=== PATIENT | male | born 1975 | race Caucasian/White ===

== ENCOUNTER 2020-08-04 06:34 | Outpatient (CLI) | payer BC, SELFPAY ==
[2020-08-04 07:15] LABS: Alanine Aminotransferase 30 U/L (4-50); Alkaline Phosphatase 63 U/L (38-126); Anion Gap 6 mmol/L (8-16); Aspartate Amino Transferase 25 U/L (17-59); Bilirubin,Total 0.4 mg/dL (0.2-1.3); Blood Urea Nitrogen 9 mg/dL (9-20); Calcium 9.1 mg/dL (8.4-10.2); Carbon Dioxide 32 mmol/L (22-30); Chloride 102 mmol/L (98-107); Cholesterol 159 mg/dL (0-200); Estimated Glomerular Filt Rate > 60; Glucose 118 mg/dL (75-110); HDL Direct 29 mg/dL; Potassium 4.1 mmol/L (3.4-5.0); Sodium 140 mmol/L (137-145); Triglycerides 167 mg/dL (<150)
[2020-08-04 07:26] LABS: LDL Cholesterol Direct 104 mg/dL
== END 2020-08-04 06:35 | disposition home or self-care (01) ==
PROVIDERS: PCP Internal Medicine; Visit Provider Internal Medicine Cardiovascular Disease
DX: I48.19 Other persistent atrial fibrillation (principal); E78.2 Mixed hyperlipidemia; R00.2 Palpitations
CPT/HCPCS: 36415; 80053; 80061; 83735; 84443

== ENCOUNTER 2020-09-11 10:57 | Outpatient (CLI) | payer BC, SELFPAY ==
[2020-09-14 07:55] LABS: FSH <0.7 mIU/mL (1.6-8.0); LH <0.2 mIU/mL (1.5-9.3)
[2020-09-15 13:57] LABS: Testosterone Free 177.4 pg/mL (35.0-155.0); Testosterone Total 837 ng/dL (250-1100)
== END 2020-09-11 10:58 | disposition home or self-care (01) ==
PROVIDERS: PCP Internal Medicine; Visit Provider Internal Medicine
DX: R79.89 Other specified abnormal findings of blood chemistry (principal)
CPT/HCPCS: 36415; 83001; 83002; 84402; 84403

== ENCOUNTER 2021-01-01 15:08 | Outpatient (CLI) | payer BC, SELFPAY ==
[2021-01-01 15:45] LABS: Basophils Percent Auto 0.2 % (0.2-1.2); Eosinophils Absolute Auto 0.1 K/mm3 (0-0.3); Eosinophils Percent Auto 1.3 % (0-4.4); Hematocrit 49.1 % (42.0-52.0); Hemoglobin 16.8 g/dL (14.0-18.0); Immature Granulocyte Absolute 0.04 K/mm3 (0.00-0.031); Immature Granulocyte Percent A 0.5 % (0-0.5); Lymphocytes Absolute Auto 1.54 K/mm3 (0.9-3.2); Mean Corpuscular HGB Conc 34.2 g/dl (32-36); Mean Corpuscular Hemoglobin 30.4 pg (26-34); Mean Corpuscular Volume 88.8 fl (80-100); Mean Platelet Volume 8.8 fl (7.4-10.4); Monocytes Absolute Auto 0.7 K/mm3 (0.1-0.6); Monocytes Percent Auto 7.7 % (2.6-8.5); Neutrophils Absolute Auto 6.2 K/mm3 (1.3-6.7); Neutrophils Percent Auto 72.3 % (45.5-73.1); Platelet Count Result 239 k/mm3 (150-375); Red Blood Count 5.53 M/mm3 (4.6-6.20); Red Cell Distribution Width 12.1 % (11.5-14.5); White Blood Count 8.6 K/mm3 (4.5-10.0)
[2021-01-01 16:01] LABS: Alanine Aminotransferase 30 U/L (4-50); Alkaline Phosphatase 67 U/L (38-126); Anion Gap 6 mmol/L (8-16); Aspartate Amino Transferase 28 U/L (17-59); Bilirubin,Total 0.5 mg/dL (0.2-1.3); Blood Urea Nitrogen 11 mg/dL (9-20); Carbon Dioxide 28 mmol/L (22-30); Chloride 103 mmol/L (98-107); Cholesterol 150 mg/dL (0-200); Estimated Glomerular Filt Rate > 60; Glucose 107 mg/dL (75-110); HDL Direct 30 mg/dL; Potassium 3.8 mmol/L (3.4-5.0); Sodium 137 mmol/L (137-145); Triglycerides 197 mg/dL (<150)
[2021-01-01 16:12] LABS: LDL Cholesterol Direct 92 mg/dL
[2021-01-01 16:30] LABS: Prostate Specific Antigen 1.5 ng/mL (< OR = 4.0)
[2021-01-05 15:25] LABS: Testosterone Free 333.4 pg/mL (35.0-155.0); Testosterone Total 1323 ng/dL (250-1100)
== END 2021-01-01 15:09 | disposition home or self-care (01) ==
PROVIDERS: PCP Internal Medicine; Visit Provider Internal Medicine
DX: R79.89 Other specified abnormal findings of blood chemistry (principal); I48.0 Paroxysmal atrial fibrillation
CPT/HCPCS: 36415; 80053; 80061; 84153; 84402; 84403; 85025

== ENCOUNTER 2021-07-03 09:02 | Outpatient (CLI) | payer BC, SELFPAY ==
[2021-07-03 09:17] LABS: Basophils Percent Auto 0.4 % (0.2-1.2); Eosinophils Absolute Auto 0.2 K/mm3 (0-0.3); Eosinophils Percent Auto 2.8 % (0-4.4); Hemoglobin 15.7 g/dL (14.0-18.0); Immature Granulocyte Absolute 0.02 K/mm3 (0.00-0.031); Immature Granulocyte Percent A 0.3 % (0-0.5); Lymphocytes Absolute Auto 1.07 K/mm3 (0.9-3.2); Lymphocytes Percent Auto 15.6 % (18.3-44.2); Mean Corpuscular HGB Conc 34.1 g/dl (32-36); Mean Corpuscular Hemoglobin 30.8 pg (26-34); Mean Corpuscular Volume 90.4 fl (80-100); Mean Platelet Volume 8.7 fl (7.4-10.4); Monocytes Absolute Auto 0.7 K/mm3 (0.1-0.6); Monocytes Percent Auto 10.6 % (2.6-8.5); Neutrophils Absolute Auto 4.8 K/mm3 (1.3-6.7); Neutrophils Percent Auto 70.3 % (45.5-73.1); Platelet Count Result 205 k/mm3 (150-375); Red Blood Count 5.09 M/mm3 (4.6-6.20); Red Cell Distribution Width 12.3 % (11.5-14.5); White Blood Count 6.9 K/mm3 (4.5-10.0)
[2021-07-08 12:52] LABS: Testosterone Free 207.7 pg/mL (35.0-155.0); Testosterone Total 966 ng/dL (250-1100)
== END 2021-07-03 09:03 | disposition home or self-care (01) ==
PROVIDERS: PCP Internal Medicine; Visit Provider Internal Medicine
DX: I48.0 Paroxysmal atrial fibrillation (principal); R79.89 Other specified abnormal findings of blood chemistry
CPT/HCPCS: 36415; 84402; 84403; 85025

== ENCOUNTER 2022-02-04 06:57 | Outpatient (CLI) | payer BC, SELFPAY ==
[2022-02-04 07:33] LABS: Alanine Aminotransferase 30 U/L (4-50); Albumin Level 4.2 g/dL (3.5-5.1); Alkaline Phosphatase 78 U/L (38-126); Anion Gap 7 mmol/L (8-16); Aspartate Amino Transferase 32 U/L (17-59); Bilirubin,Total 0.6 mg/dL (0.2-1.3); Blood Urea Nitrogen 15 mg/dL (9-20); Calcium 8.6 mg/dL (8.4-10.2); Carbon Dioxide 27 mmol/L (22-30); Chloride 103 mmol/L (98-107); Estimated Glomerular Filt Rate > 60; Glucose 158 mg/dL (65-110); Potassium 4.1 mmol/L (3.4-5.0); Sodium 137 mmol/L (137-145)
[2022-02-04 08:03] LABS: Prostate Specific Antigen 1.3 ng/mL (< OR = 4.0)
[2022-02-04 08:37] LABS: Basophils Percent Auto 0.4 % (0.2-1.2); Eosinophils Absolute Auto 0.1 K/mm3 (0-0.3); Hematocrit 45.3 % (42.0-52.0); Hemoglobin 14.8 g/dL (14.0-18.0); Immature Granulocyte Absolute 0.01 K/mm3 (0.00-0.031); Immature Granulocyte Percent A 0.2 % (0-0.5); Lymphocytes Absolute Auto 0.97 K/mm3 (0.9-3.2); Lymphocytes Percent Auto 19.7 % (18.3-44.2); Mean Corpuscular HGB Conc 32.7 g/dl (32-36); Mean Corpuscular Hemoglobin 30.5 pg (26-34); Mean Corpuscular Volume 93.4 fl (80-100); Mean Platelet Volume 9.4 fl (7.4-10.4); Monocytes Absolute Auto 0.3 K/mm3 (0.1-0.6); Monocytes Percent Auto 5.7 % (2.6-8.5); Neutrophils Absolute Auto 3.6 K/mm3 (1.3-6.7); Platelet Count Result 219 k/mm3 (150-375); Red Blood Count 4.85 M/mm3 (4.6-6.20); Red Cell Distribution Width 12.8 % (11.5-14.5); White Blood Count 4.9 K/mm3 (4.5-10.0)
[2022-02-08 13:11] LABS: Testosterone Free 182.2 pg/mL (35.0-155.0); Testosterone Total 911 ng/dL (250-1100)
== END 2022-02-04 06:58 | disposition home or self-care (01) ==
LOC: ANHLAB 06:59
PROVIDERS: PCP Internal Medicine; Visit Provider Internal Medicine
DX: R79.89 Other specified abnormal findings of blood chemistry (principal); Z51.81 Encounter for therapeutic drug level monitoring; Z79.890 Hormone replacement therapy
CPT/HCPCS: 36415; 80053; 84153; 84402; 84403; 85025

== ENCOUNTER 2022-08-08 06:58 | Outpatient (CLI) | payer BC, SELFPAY ==
[2022-08-08 07:16] LABS: Hematocrit 42.2 % (42.0-52.0); Hemoglobin 14.5 g/dL (14.0-18.0); Mean Corpuscular HGB Conc 34.4 g/dl (32-36); Mean Corpuscular Hemoglobin 30.5 pg (26-34); Mean Corpuscular Volume 88.7 fl (80-100); Mean Platelet Volume 8.7 fl (7.4-10.4); Platelet Count Result 212 k/mm3 (150-375); Red Blood Count 4.76 M/mm3 (4.6-6.20); Red Cell Distribution Width 12.5 % (11.5-14.5)
[2022-08-08 07:38] LABS: Alanine Aminotransferase 23 U/L (6-50); Albumin Level 4.1 g/dL (3.5-5.1); Alkaline Phosphatase 77 U/L (38-126); Anion Gap 7 mmol/L (8-16); Aspartate Amino Transferase 23 U/L (17-59); Bilirubin,Total 0.3 mg/dL (0.2-1.3); Blood Urea Nitrogen 14 mg/dL (9-20); Calcium 8.5 mg/dL (8.4-10.2); Carbon Dioxide 28 mmol/L (22-30); Chloride 102 mmol/L (98-107); Estimated Glomerular Filt Rate > 60; Glucose 120 mg/dL (65-110); Potassium 4.1 mmol/L (3.4-5.0); Sodium 137 mmol/L (137-145)
[2022-08-08 08:00] LABS: Prostate Specific Antigen 1.7 ng/mL (< OR = 4.0)
[2022-08-13 13:21] LABS: Testosterone Total 936 ng/dL (250-1100)
== END 2022-08-08 06:59 | disposition home or self-care (01) ==
LOC: ANHLAB 06:59
PROVIDERS: PCP Internal Medicine; Visit Provider Internal Medicine
DX: R79.89 Other specified abnormal findings of blood chemistry (principal); Z79.890 Hormone replacement therapy; Z12.5 Encounter for screening for malignant neoplasm of prostate; Z51.81 Encounter for therapeutic drug level monitoring
CPT/HCPCS: 36415; 80053; 84153; 84402; 84403; 85027; G0103

== ENCOUNTER 2022-09-19 15:11 | Outpatient (CLI) | payer BC, SELFPAY ==
--- NOTE | ~2022-09-19 | XR_ITS ---
EXAM: XR ankle LT min 3V, XR foot LT min 3V DATE: 09/19/2022 15:33 HISTORY: M25.572 SWELLING MEDIALLY X6MO, NO INJ, CUBOID FX 20YRS AGO . COMPARISON: Left ankle x-ray 08/19/2016. FINDINGS: Normal mineralization. No acute fracture or dislocation. No lytic or blastic lesion. Mild degenerative change at the tibiotalar joint, first MTP joint, and multiple midfoot joints. Plantar en thesopathy. Mild flattening and subchondral sclerosis of the second and third metatarsal heads, possi elda representing mild osteochondrosis. No erosion or periosteal change. Small ankle joint effusion. IMPRESSION: No acute osseous finding in the left ankle or foot. Chronic and degenerative changes deta iled above. Reviewed, dictated and finalized at location K. CAST OPERATOR IMPRESSION: No acute osseous finding in the left ankle or foot. Chronic and deg enerative changes detailed above.
== END 2022-09-19 15:12 | disposition home or self-care (01) ==
PROVIDERS: PCP Internal Medicine; Visit Provider Internal Medicine
DX: M25.572 Pain in left ankle and joints of left foot (principal); M79.672 Pain in left foot
CPT/HCPCS: 73610; 73630

== ENCOUNTER 2022-11-22 16:18 | Outpatient (CLI) | payer BC, SELFPAY ==
[2022-11-22 16:52] LABS: Alanine Aminotransferase 28 U/L (6-50); Aspartate Amino Transferase 35 U/L (17-59)
== END 2022-11-22 16:19 | disposition home or self-care (01) ==
PROVIDERS: PCP Internal Medicine; Visit Provider Podiatrist Foot & Ankle Surgery
DX: B35.1 Tinea unguium (principal)
CPT/HCPCS: 36415; 84450; 84460

== ENCOUNTER 2023-05-29 07:29 | Outpatient (CLI) | payer BC, SELFPAY ==
[2023-05-29 08:32] LABS: Hematocrit 44.6 % (42.0-52.0); Hemoglobin 14.9 g/dL (14.0-18.0); Mean Corpuscular HGB Conc 33.4 g/dl (32-36); Mean Corpuscular Hemoglobin 30.3 pg (26-34); Mean Corpuscular Volume 90.8 fl (80-100); Platelet Count Result 200 k/mm3 (150-375); Red Blood Count 4.91 M/mm3 (4.6-6.20); Red Cell Distribution Width 12.5 % (11.5-14.5)
[2023-05-29 08:46] LABS: Alanine Aminotransferase 29 U/L (6-50); Albumin Level 4.1 g/dL (3.5-5.1); Alkaline Phosphatase 82 U/L (38-126); Anion Gap 6 mmol/L (8-16); Aspartate Amino Transferase 25 U/L (17-59); Bilirubin,Total 0.5 mg/dL (0.2-1.3); Blood Urea Nitrogen 16 mg/dL (9-20); Calcium 8.6 mg/dL (8.4-10.2); Carbon Dioxide 27 mmol/L (22-30); Chloride 105 mmol/L (98-107); Estimated Glomerular Filt Rate > 60; Glucose 95 mg/dL (65-110); Potassium 3.9 mmol/L (3.4-5.0); Sodium 138 mmol/L (137-145)
[2023-05-29 09:13] LABS: Prostate Specific Antigen 1.5 ng/mL (< OR = 4.0)
[2023-06-01 17:09] LABS: Testosterone Free 73.5 pg/mL (35.0-155.0); Testosterone Total 462 ng/dL (250-1100)
== END 2023-05-29 07:30 | disposition home or self-care (01) ==
LOC: ANHLAB 07:31
PROVIDERS: PCP Internal Medicine; Visit Provider Internal Medicine
DX: Z51.81 Encounter for therapeutic drug level monitoring (principal); R79.89 Other specified abnormal findings of blood chemistry; Z79.890 Hormone replacement therapy
CPT/HCPCS: 36415; 80053; 84153; 84402; 84403; 85027

== ENCOUNTER 2023-11-21 01:25 | Day surgery (SDC) | payer BC, SELFPAY ==
[2023-11-07 16:06] VITALS: BMI 28.3
--- NOTE | 2023-11-17 10:26 | SUR.PREOP ---
Patient called regarding upcoming procedure. Reviewed preop instructions, appointment times, and procedure prep.
[2023-11-21 07:40] VITALS: BP 116/57; PULSE 16; RESP 16; TEMP 36.1; O2SAT 98; BMI 28.0
[2023-11-21] MEDS: LACTATED RINGERS 1,000 ML 150 ML IV CONT (08:07)
--- NOTE | 2023-11-21 08:27 | WPDANESEPPF ---
Anes - Initial Pre Proc Eval Procedure: Operation Date: 11/21/23 09:00 Proposed Procedures p Screening Colonoscopy - Feliciano Rogers MD Date/Time: 11/21/23 08:27 Surgeon: Feliciano Rogers MD Pre Op Diagnosis: neoplasm screening Patient Data Age: 48 Gender: M Height: 1.88 m Weight: 98.9 kg Last Vital Signs Temp 97.0 F L 11/21/23 07:40 Pulse 16 L 11/21/23 07:40 Resp 16 11/21/23 07:40 BP 116/57 L 11/21/23 07:40 Pulse Ox 98 11/21/23 07:40 O2 Del Method Room Air 11/21/23 07:40 Allergies Allergy/AdvReac Type Severity Reaction Status Date / Time No Known Allergies Allergy Unknown Verified 11/21/23 07:49 Home Medications Medication Instructions Recorded Confirmed Type sildenafil (pulm.hypertension) 20 60 mg PO DAILY PRN sexual activity 09/30/22 11/21/23 Rx mg tablet #30 tabs syringe with needle 3 mL 21 gauge #100 ea 06/22/23 11/21/23 Rx x 1 1/2 (BD Luer-Ruben Syringe) metoprolol succinate 25 mg 25 mg PO DAILY 11/07/23 11/21/23 History tablet,extended release 24 hr testosterone cypionate 200 mg/mL 150 mg IM WEEKLY 11/07/23 11/21/23 History intramuscular oil Patient hx anesthesia problems: none Family hx anesthesia problems: none Results Review: All pre-operative results and documents have been reviewed as part of the pre-operative evaluation. [facility] Past Medical History Medical History Allergies Encounter for monitoring testosterone replacement therapy Epigastric mass Erectile dysfunction Heartburn Low testosterone Migraine Paroxysmal atrial fibrillation Surgical History Surgical History H/O heart surgery 11/04/2020 Family History Family History Mother Patient's mother is in good health Father Patient's father is in good health Grandparent Malignant neoplasm of prostate Social History Social History (Updated 06/13/23 @ 11:40 by Melissa Rajan [facility]) Smoking status: Never smoker Alcohol intake: current Substance use: never Substance use type: does not use Lack of Transportation: No Lack of Food: Never True Current Housing: I Have Housing Concerned About Future Housing: No Difficulty Paying Gas/Electric Bills: No Difficulty Paying for Meds: No Currently Unemployed: No Education: Associate Degree Difficulty w/ Childcare or Family Care: No Living arrangements: with family Spiritual care concerns: No Anes - Eval Final PreProcedure Day of Procedure 11/21/23 08:27 Patient weight: normal Heart: regular rate and rhythm Lungs: clear to auscultation Airway: Mallampati scale class II Neurological: alert and oriented Last oral intake: >/= 8 hours ASA classification: III Emergent: no Anesthetic plan: proceed Anesthesia type and monitoring: general GIVS and standard monitoring Results Review: All pre-operative results and documents have been reviewed as part of the pre-operative evaluation. Informed Consent: The patient's anesthetic plan and its attendant risks and benefits were discussed with the patient/family/POA. Questions were solicited and answers provided to the satisfaction of the patient/family/POA.
--- NOTE | 2023-11-21 08:39 | PM.HPGS ---
History of Present Illness History of Present Illness Consent: Risks, benefits, and alternatives have been discussed and questions answered. Patient agrees to proceed with procedure. Chief complaint: neoplasm screening Narrative: Daniel Colon Jr. is a 48 year old male here for first screening colonoscopy Review of Systems Constitutional: Constitutional: Denies headache(s) and Denies weakness Eyes: Eyes: Denies blurry vision ENT: Reports Normal hearing present, Denies headache(s) and Denies neck pain Cardiovascular: Cardiovascular: Denies chest pain and Denies dyspnea Respiratory: Respiratory: Denies dyspnea Gastrointestinal: Gastrointestinal: Reports no additional gastrointestinal complaints Genitourinary: Genitourinary: Denies dysuria Musculoskeletal: Musculoskeletal: Denies neck pain Integumentary/Breasts: Skin/Breast: Denies dry skin Neurologic: Reports Normal hearing present, Denies headache(s) and Denies weakness Psychiatric: Psychiatric: Denies anxiety Endocrine: Endocrine: Denies change in body appearance Hematologic/Lymphatic: Hematologic/Lymphatic: Denies easy bleeding Allergic/Immunologic: Allergic/Immunologic: Denies urticaria PMFSH Past Medical History Medical History Allergies Encounter for monitoring testosterone replacement therapy Epigastric mass Erectile dysfunction Heartburn Low testosterone Migraine Paroxysmal atrial fibrillation Surgical History Surgical History H/O heart surgery 11/04/2020 Family History Family History Mother Patient's mother is in good health Father Patient's father is in good health Grandparent Malignant neoplasm of prostate Social History Social History (Updated 06/13/23 @ 11:40 by Melissa Rajan CMA) Smoking status: Never smoker Alcohol intake: current Substance use: never Substance use type: does not use Lack of Transportation: No Lack of Food: Never True Current Housing: I Have Housing Concerned About Future Housing: No Difficulty Paying Gas/Electric Bills: No Difficulty Paying for Meds: No Currently Unemployed: No Education: Associate Degree Difficulty w/ Childcare or Family Care: No Living arrangements: with family Spiritual care concerns: No Meds Home Medications and Allergies Home Medications Medication Instructions Recorded Confirmed Type sildenafil (pulm.hypertension) 20 60 mg PO DAILY PRN sexual activity 09/30/22 11/21/23 Rx mg tablet #30 tabs syringe with needle 3 mL 21 gauge #100 ea 06/22/23 11/21/23 Rx x 1 1/2 (BD Luer-Ruben Syringe) metoprolol succinate 25 mg 25 mg PO DAILY 11/07/23 11/21/23 History tablet,extended release 24 hr testosterone cypionate 200 mg/mL 150 mg IM WEEKLY 11/07/23 11/21/23 History intramuscular oil Allergies Allergy/AdvReac Type Severity Reaction Status Date / Time No Known Allergies Allergy Unknown Verified 11/21/23 07:49 Vital Signs Vital Signs - 24 hr 11/21/23 07:40 Temperature 97.0 F L Pulse Rate 16 L Respiratory Rate 16 Blood Pressure 116/57 L Pulse Oximetry 98 Oxygen Delivery Room Air Exam Const: General: comfortable and no acute distress HENMT: Face/Nose/Sinus: Normal nares present Eyes: General: appearance normal, both eyes and all related structures Neck: Neck: no JVD Resp: Auscultation: clear to auscultation bilaterally Cardio: Rate: regular rate Rhythm: regular rhythm GI: Inspection: non-distended GI Palp: Yes Soft to palpation Skin: General skin exam: normal color Neuro: General: gait normal Speech: normal speech Extrem: General: normal to inspection Psych: Mental Status: mental status grossly normal Assessment and Plan Assessment and plan (1) Colon cancer screening: Code(s): Z12.11 - Encounter for screening f
[2023-11-21 09:03] VITALS: BP 92/54; PULSE 78; RESP 20; O2SAT 97
[2023-11-21 09:13] VITALS: BP 109/66; PULSE 72; RESP 20; O2SAT 100
[2023-11-21 09:23] VITALS: BP 113/70; PULSE 67; RESP 20; O2SAT 99
== END 2023-11-21 09:30 | disposition home or self-care (01) ==
PROVIDERS: PCP Internal Medicine; Visit Provider Internal Medicine Gastroenterology
PROC: 0DJD8ZZ Inspection of Lower Intestinal Tract, Via Natural or Artificial Opening Endoscopic (ICD-10-PCS; CPT 45378; principal; 2023-11-21 09:00)
DX: Z12.11 Encounter for screening for malignant neoplasm of colon (principal); K57.30 Diverticulosis of large intestine without perforation or abscess without bleeding; K64.8 Other hemorrhoids; E29.1 Testicular hypofunction; Z79.890 Hormone replacement therapy; I48.0 Paroxysmal atrial fibrillation
CPT/HCPCS: 45378; J2704; J7120

== ENCOUNTER 2024-02-07 07:51 | Outpatient (CLI) | payer BC, SELFPAY ==
[2024-02-07 09:07] LABS: Alanine Aminotransferase 25 U/L (6-50); Albumin Level 4.2 g/dL (3.5-5.1); Alkaline Phosphatase 85 U/L (38-126); Anion Gap 6 mmol/L (4-12); Aspartate Amino Transferase 27 U/L (17-59); Bilirubin,Total 0.7 mg/dL (0.2-1.3); Blood Urea Nitrogen 15 mg/dL (9-20); Carbon Dioxide 28 mmol/L (22-30); Chloride 105 mmol/L (98-107); Estimated Glomerular Filt Rate > 60; Glucose 112 mg/dL (65-110); Potassium 3.8 mmol/L (3.4-5.0); Sodium 139 mmol/L (137-145)
[2024-02-07 09:27] LABS: Hematocrit 44.6 % (42.0-52.0); Hemoglobin 14.8 g/dL (14.0-18.0); Mean Corpuscular HGB Conc 33.2 g/dl (32-36); Mean Corpuscular Hemoglobin 30.1 pg (26-34); Mean Corpuscular Volume 90.7 fl (80-100); Mean Platelet Volume 9.9 fl (7.4-10.4); Platelet Count Result 233 k/mm3 (150-375); Red Blood Count 4.92 M/mm3 (4.6-6.20); White Blood Count 4.8 K/mm3 (4.5-10.0)
[2024-02-07 09:35] LABS: Prostate Specific Antigen 1.6 ng/mL (< OR = 4.0)
[2024-02-13 16:23] LABS: Testosterone Free 160.6 pg/mL (35.0-155.0); Testosterone Total 935 ng/dL (250-1100)
== END 2024-02-07 07:52 | disposition home or self-care (01) ==
LOC: ANHLAB 07:52
PROVIDERS: PCP Internal Medicine; Visit Provider Internal Medicine
DX: Z51.81 Encounter for therapeutic drug level monitoring (principal); R79.89 Other specified abnormal findings of blood chemistry; Z79.890 Hormone replacement therapy
CPT/HCPCS: 36415; 80053; 84153; 84402; 84403; 85027

== ENCOUNTER 2025-03-26 14:57 | Outpatient (CLI) | payer OTHER, SELFPAY ==
[2025-03-26 15:36] LABS: Cholesterol 148 mg/dL (0-200); HDL Direct 37 mg/dL; Triglycerides 84 mg/dL (<150)
[2025-03-26 15:45] LABS: LDL Cholesterol Direct 90 mg/dL
[2025-03-26 16:03] LABS: Iron 63 ug/dL (49-181)
[2025-03-26 16:06] LABS: Prostate Specific Antigen 1.8 ng/mL (< OR = 4.0)
[2025-03-26 16:11] LABS: Percent Iron Saturation 22 % (20-50)
--- OUTSIDE RECORDS SUMMARY | 2025-03-26 17:30 | XMS_ITS | Referral Summary ---
Author Organization [facility] Healthcare Address [address] [place] [address] Care Team Providers Care Fish Hatchery Inspector Name Role Phone Ke Burks DO Primary Care Provider [phone] Allergies No known active allergies Medications sildenafiL, pulm.hypertensio n, (REVATIO) 20 mg tabletIndication s:Erectile Dysfunction Take 1 tablet (20 mg total) by mouth as needed 0 Active testosterone cypionate (DEPO-TESTOTERON E) 200 mg/mL injectionIndicat ions:Androgen Deficiency Inject 0.75 mL (150 mg total) into the muscle as instructed once a week 0 Active multivitamin capsule Take 2 capsules by mouth daily Active ascorbic acid (ascorbic acid with adonis hips) 500 mg tablet,chewable Acti ve metoprolol XL (TOPROL-XL) 25 mg extended release tablet TAKE 1 TABLET BY MOUTH EVERY DAY 90 tablet 2 4 Active Active Problems Problem Noted Date Diagnosed Date Preventative health care 11/20/2023 Assessment & Plan (11/20/2023 8:42 AM SALON SUPERVISOR): Lipid profile with next lab draw. Osteoarthritis 11/04/2020 Assessment & Plan (11/04/2020 6:04 PM SALON SUPERVISOR): - hold nsaids periprocedurally Atrial fibrillation 10/05/2020 Overview (10/05/2020): Added automatically from request for surgery [id number] Assessment & Plan (11/20/2023 8:41 AM SALON SUPERVISOR): Ok to change metoprolol to PRN. Assessment & Plan (11/05/2020 10:42 AM SALON SUPERVISOR): Recurrent paroxysmal Afib/flutter treated with Pulmonary vein isolation/RFA yesterday. No complications noted overnight. - resume eliquis per EP team - resume toprol this morning - monitor on tele- NSR - PPI x 30 days per EP Assessment & Plan (11/04/2020 6:04 PM SALON SUPERVISOR): - recurrent paroxysmal Afib/flutter treated with Pulmonary vein isolation/RFA today - resume eliquis per EP team - will likely resume toprol in AM - will confirm with EP - monitor on tele - monitor for any complications of procedure including groin puncture site hematoma/fistulae, effusions etc.; if doing well may be able to go home tomorrow - will clarify with EP if need for PPI post procedure given proximity to esophagus Chronic infection of sinus 11/26/2012 Social History Tobacco Use Types Packs/Day Years Used Date Smoking Tobacco: Never Smokeless Tobacco: Never Tobacco Cessation:Counseling Given: Not Answered Alcohol Use Standard Drinks/Week Comments Not Currently 0 (1 standard drink = 0.6 oz pur e alcohol) Sex and Gender Information Value Date Recorded Sex Assigned at Not on file Legal Sex Male 10:02 AM SALON SUPERVISOR Gender Identity Male 12/09/2020 6:29 PM SALON SUPERVISOR Sexual Orientation Straight 12/09/2020 6: 29 PM SALON SUPERVISOR Last Filed Vital Signs Vital Sign Reading Time Taken Comments Blood Pressure 122/77 11/20/2023 8:40 AM SALON SUPERVISOR Pulse 61 11/20/2023 8:40 AM SALON SUPERVISOR Temperature 36.8 C (98.2 F) 02/07/2021 5:30 AM CDT Respiratory Rate 20 02/07/2021 7:45 AM CDT Oxygen Saturation 97% 11/20/2023 8:40 AM SALON SUPERVISOR Inhaled Oxygen Concentration - - Weight 102.8 kg (226 lb 9.6 oz) 11/20/2023 8:40 AM SALON SUPERVISOR Height 188 cm (6' 2) 11/20/2023 8:40 AM SALON SUPERVISOR Body Mass Index 29.09 11/20/2023 8:40 AM SALON SUPERVISOR Plan of Treatment Not on file Medical Devices Implanted Type Area Digital Artist Device Identifier Shelf Expiration Date Model / Serial / Lot [employer] [id number] System 6-12fr Mvp Venous Closure Vascade - [id number] Implanted:Qty: 1 on 11/04/2020 by Ronald Epperson MD at [facility] [employer] 08/17/2022 [id number]-[id number] / / [employer] [id number] System 6-12fr Mvp Venous Closure Vascade - [id number] Implanted:Qty: 1 on 11/04/2020 by Ronald Epperson MD at [facility] [employer] 08/17/2022 800-612C-[id number] [id number] / / [employer] [id number] System 6-12fr Mvp Venous Closure Vascade - [id number] Implanted:Qty: 1 on 11/04/2020 by Ronald Epperson MD at [facility] [employer] 08/17/2022 [id number] / / Insurance ANTHEM ACCESS CHOICE Advance Directives For more information, please contact: [phone] * Full Code (Latest Code Status on File) Date Activated Date Inactivated Comments 02/05/2021 3:10 PM 02/07/2021 3:58 PM Care Teams Fish Hatchery Inspector Relationship Specialty Start Date End Date Ke Burks DO PCP - General 06/01/15
--- OUTSIDE RECORDS SUMMARY | 2025-03-26 17:30 | XMS_ITS | Continuity of Care Document ---
Author Organization [facility] Address [address] [place] [address] Phone Care Team Providers Care Tobacco Classer Name Role Phone Adali King DO Unavailable Unavailable Allergies, Adverse Reactions, Alerts Substance Reaction Status Criticality No Known Drug Allergies Active No I nformation Medications Medication Instructions Dosage Effective Dates (start - stop) Status Comments cyclobenzaprine 5 mg tablet take 1 tablet by oral route at bedtime as needed for muscle spasms - No Longer Active Procedures Procedure Date Supplemental Report Office[place] [facility] [place] of cervical spine, No Contrast Supplemental Report [place] [facility] [place] Supplemental Report [place] [facility] [place] X-ray exam of thoracic 2 views 16 X-ray exam Cervical 3 Views Or Less Office[facility]patient visit[place] [facility] [place] Advance Directives Directive Yes / No Effective Date File Name No Information Encounters Encounter Description Practice Location Reason(s) For Visit Diagnoses Date Provider Providers Copied on Encounter Office/outpa tient visit,est, [facility], [address], [place], [place], [id number], [place] tel:[phone] [employer] Follow Up of Cervical, Kinga Shoulders (chief complaint) Sprain of ligaments of cervical spine, subsequent encounterSprain of ligaments of thoracic spine, subsequent encounterContusio n of scalp, subsequent encounter 6 Christine Bro. [address], [address], [place], [place], [id number] , [place]. tel:[phone] [facility], [address] [address], [place], [place], [id number], [place] tel:[phone] [facility] Sprain of ligaments of cervical spine, subsequent encounter 6 [facility]. [address], [address], [place], [place], [id number] , [place]. tel:[phone] Referring Provider: Adali Nur, [address] [place] [address] [address], [place], [address] . tel:[phone] Office[place]pa [place]ient visit[place] [facility] [place] [facility], [facility] [address], [place], [place], [id number], [place] tel:[phone] [facility] [employer] [facility] Follow Up of Cervical, Head, Kinga Shoulders (chief complaint) Sprain of ligaments of cervical spine, subsequent encounterSprain of ligaments of thoracic spine, subsequent encounterContusio n of scalp, subsequent encounter 6 Christine Bro. [address], [address], [place], [place], [id number] , [place]. tel:[phone] [place] [facility] [place] [facility], [address] [address], [place], [place], [id number], [place] [phone] [facility] [employer] [facility] Cervical (chief complaint) Contusion of scalp, subsequent encounterSprain of ligaments of thoracic spine, subsequent encounterSprain of ligaments of cervical spine, subsequent encounter 6 Christine Bro. [address], [address], [place], [place], [id number] , [place]. tel:[phone] [place] [facility] [place] [facility], [address], [place], [place], [id number], [place] tel:[phone] [facility] CervicalgiaPain in thoracic spineSprain of ligaments of cervical spine, initial encounterSprain of ligaments of thoracic spine, initial encounterContusio n of scalp, initial encounter 6 Christine Bro. [address], [address], [place], [place], [address] , [place]. tel: [phone] Family History Family Member Type Diagnosis Age At Onset Mother Problem (finding) Heart disease Paternal grandfather Problem (finding) prostate cancer Payers Payer name Insurance type Covered democrat ID Authormagdiel cruz(s) [employer] Claims Management [id number] Social History Type Description Quantity Date Captured Comments Alcohol Use Details Unknown Caffeine Use Details Unknown Tobacco Use Status No Information Smoking Status Never smoker Non-Smoking Tobacco Use Details : No Details Available : No Details Available Sex Male Vital Signs Date / Time: Height Weight BMI Pulse Rate Blood Pressure Temperature Respiratory Rate Body Surface Area Head Circumference Head Circ. Percentile Wt./Ramo. Percentile BMI percentile Pulse Ox Inhaled Ox 4:07 PM 92 /min 146/80 mm[Hg] 16 /min Chief Complaint And Reason For Visit From encounter dated '02/24/2016 13:00'. Follow Up of Cervical, Kinga Shoulders (chief complaint) Reason For Referral Reason For Referral No Information Plan Of Treatment Date Type Action Status Referral Ordered: MRI of cervical spine, No Contrast Appointment date/timeframe: 02/10/2016 ordered Referral Ordered: X-ray exam of thoracic 2 views ordered Referral Ordered: X-ray exam Cervical 3 Views Or Less ordered History Of Present Illness Encounter Date Complaint History Of Prese nt Illness Follow Up of Cervica l, Kinga Shoulders Follow Up of Cervica l, Head, Kinga Shoulders Cervical Follow up on cer vical, thoracic & kinga shoulders Functional Status Date Functional Assessmen t No Information Instructions Date Instruction Additional Infor mation No Information Assessments Type Assessment Date assessment Sprain of ligaments of cervical spine, subsequent encounter assessment Sprain of ligaments of thoracic spine, subsequent encounter Patient Care Teams Name Effective Dates (start - stop) Status Members No Information
--- OUTSIDE RECORDS SUMMARY | 2025-03-26 17:30 | XMS_ITS | Encounter Summary ---
Author Organization [facility] Address [address] [place] [address] Care Team Providers Care Navy Fighter Pilot Name Role Phone Yanira Chen MD Primary Care Provider [phone] Encounter Details Date Type Department Care Team (Late st Contact Info) Description 06/13/2001 Outpatient Historical [facility] Family Medicine - [facility] [address] [facility] [address] [place] [id number] Yanira Chen MD [address] [place] [address] Social History Tobacco Use Types Packs/Day Years Used Date Smoking Tobacco: Never Assessed Sex and Gender Information Value Date Recorded Sex Assigned at Not on file Legal Sex Male 4:01 AM MACHINE REPAIRMAN Gender Identity Not on file Sexual Orientation Not on file documented as of this encounter Plan of Treatment Not on file documented as of this encounter Visit Diagnoses Not on filedocumented in this encounter Care Teams Navy Fighter Pilot Relationship Specialty Start Date End Date Yanira Chen MD PCP - General 03/11/08 documented as of this encounter
--- OUTSIDE RECORDS SUMMARY | 2025-03-26 17:30 | XMS_ITS | Encounter Summary ---
Author Organization [facility] Address [address] [place] [address] Care Team Providers Care Plastic Tile Setter Name Role Phone Yanira Chen MD Primary Care Provider [phone] Encounter Details Date Type Department Care Team (Late st Contact Info) Description 12/12/2000 Outpatient Historical [facility] Family Medicine - [facility] [address] [facility] [address] [place] [id number] Yanira Chne MD [address] [place] [address] Social History Tobacco Use Types Packs/Day Years Used Date Smoking Tobacco: Never Assessed Sex and Gender Information Value Date Recorded Sex Assigned at Not on file Legal Sex Male 4:01 AM CIRCUIT CLERK Gender Identity Not on file Sexual Orientation Not on file documented as of this encounter Plan of Treatment Not on file documented as of this encounter Visit Diagnoses Not on filedocumented in this encounter Care Teams Plastic Tile Setter Relationship Specialty Start Date End Date Yanira Chen MD PCP - General 03/11/08 documented as of this encounter
--- OUTSIDE RECORDS SUMMARY | 2025-03-26 17:30 | XMS_ITS | Data Portability ---
Author Organization [facility][1] OFFICE Address [address] [place] [address] Care Team Providers Care Bridge Inspector Name Role Phone ROBERT HAYES Primary Care Provider ROBERT HAYES Referring Provider [phone] Assessment Encounter Date Assessment Date Assessment LastModified by Organization Details LastModified Time 03/08/2019 03/08/2019 Discussed with patient findings, diagnosis, and prognosis. Discussed evaluation and treatment options including risks and benefits with patient, and patient expressed understanding. The following interventions were recommended: heart healthy low-fat, low-sodium diet, begin regular exercise, maintain appropriate weight, continue current medications, and medical follow-up as noted. Not available 03/08/2019 11:15:17 11/29/2019 11/29/2019 Discussed with patient findings, diagnosis, and prognosis. Discussed evaluation and treatment options including risks and benefits with patient, and patient expressed understanding. The following interventions were recommended: heart healthy low-fat, low-sodium diet, begin regular exercise, maintain appropriate weight, continue current medications, and medical follow-up as noted. [email or web address] Not available 11/29/2019 12:30:48 06/03/2020 06/03/2020 Discussed with patient findings, diagnosis, and prognosis. Discussed evaluation and treatment options including risks and benefits with patient, and patient expressed understanding. The following interventions were recommended: heart healthy low-fat, low-sodium diet, avoid strenuous exercise pending completion of cardiovascular evaluation, maintain appropriate weight, continue current medications, and medical follow-up as noted. [email or web address] Not available 06/03/2020 16:08:48 08/05/2020 08/05/2020 Discussed with patient findings, diagnosis, and prognosis. Discussed evaluation and treatment options including risks and benefits with patient, and patient expressed understanding. The following interventions were recommended: heart healthy low-fat, low-sodium diet, avoid strenuous exercise pending completion of cardiovascular evaluation, maintain appropriate weight, continue current medications, and medical follow-up as noted. [email or web address] Not available 08/05/2020 09:45:45 08/26/2020 08/26/2020 Discussed with patient findings, diagnosis, and prognosis. Discussed evaluation and treatment options including risks and benefits with patient, and patient expressed understanding. The following interventions were recommended: heart healthy low-fat, low-sodium diet, avoid strenuous exercise pending completion of cardiovascular evaluation, maintain appropriate weight, continue current medications, and medical follow-up as noted. Not available 08/25/2020 12:28:51 Plan of Treatment Reminders Order Date Submit Date Provider Last Modified By Organization Details Last Modified Time Details Appointments None recorded. Lab None recorded. Referral None recorded. Procedures None recorded. Surgeries None recorded. Imaging electrocar diogram 2019 020 [email or web address] Not available 0 15:29:32 Medication Orders metoprolol succinate ER 100 mg tablet,ext ended release 24 hr 2019 020 INTER[facility] #[id number], [address], [id number], 0 15:00:43 metoprolol succinate ER 50 mg tablet,ext ended release 24 hr 2019 020 [facility], [address], [id number], 0 14:51:57 aspirin 325 mg tablet,del ayed release 2019 020 INTERFACE [facility] #[id number], [address], [id number], 0 15:25:48 metoprolol succinate ER 50 mg tablet,ext ended release 24 hr 2018 019 [place] [address] [facility]48[facility], [address], [place], [id number], 0 14:51:57 aspirin 325 mg tablet,del ayed release [address] [facility] #20800, [address], [place], [place], [id number], 9 11:18:31 Patient TargetsNo targets recorded. Patient Instructions Encounter Date Encounter Id Patient Instructions Last Modified By Organization Details Last Modified Time 03/08/2019 [id number] chest pain: care instructions [email or web address] Not available 03/08/2019 11:18:25 11/29/2019 [id number] chest pain: care instructions [email or web address] Not available 11/29/2019 15:26:34 06/03/2020 [id number] chest pain: care instructions [email or web address] Not available 06/03/2020 16:12:15 08/05/2020 [id number] chest pain: care instructions [email or web address] Not available 08/05/2020 15:00:34 08/26/2020 [id number] chest pain: care instructions [email or web address] Not available 08/26/2020 13:42:40 Telemedicine Visit: Facetime [email or web address] Not available 08/26/2020 13:44:06 Reason for Referral None Reported. Results Created Date Observation Date Name Description Value Unit Range Abnormal Flag Note LastModifiedBy Organization Detail LastModifiedTime 02/14/20 19 02/13/2019 elect rocar diogr am Result EKG : NSR, Incomp lete [email or web address] Not Available Niko Bradley MD [address], [place], [address], 02/13/2019 12:16:01 12/02/19 20 11/29/2019 elect rocar diogr am No observ ation record ed. Not Available 2019 10:28:29 06/04/20 20 06/03/2020 elect rocar diogr am No observ ation record ed. [email or web address] Not Available 2019 15:32:17 08/13/20 20 06/14/2020 event monit or No observ ation record ed. [email or web address] Not Available 2019 13:17:24 08/19/20 20 08/18/2020 US, echoc ardio gram No observ ation record ed. [email or web address] [facility] [address], [place], [address], 08/20/2020 13:42:26 08/20/20 20 08/05/2020 elect izabela jordangr am No observ ation record ed. [email or web address] Not Available 2019 11:31:34 08/25/2008/19/2020 tyrone can cardi olite stres s test (PROC ) No observ ation record ed. [email or web address] Not Available 2019 12:52:26 Result Notes None recorded. Problems Name Problem SNOMED Code Status Onset Date Resolution Date Notes Provider Name and Address Organization Details Recorded Time Chest pain 18975919 Active 2017 Haseeb hodges, [place] - [facility] 8 11:35:28 Palpitations 68530963 Active 2017 Haseeb [place] null, [place] - [facility] 8 11:35:51 Dyspnea 785174511 Active 2017 Haseeb h[place], [place] - [facility] 8 11:36:00 Supraventricul ar tachycardia 0361649 Active 2017 Haseeb [place], [place] - [facility] 8 11:36:05 Paroxysmal atrial fibrillation 801652145 Active 2017 Haseeb h[place], [place] - [facility] 8 11:36:31 Nonsustained ventricular tachycardia 582905457 Active 2017 Haseeb [place] null, [place] - [facility] 8 11:37:01 Left ventricular hypertrophy 62631630 Active 2017 Nadir hodges [place] - [facility] 8 16:34:36 Family history of Cardiovascular disease 360617844 Active 2017 Nadir hodges [place] - [facility] 8 13:13:02 Problem Notes None recorded. Procedures Surgical History Date Name Laterality Status Provider Name and Address Organization Details Recorded Time 10/16/2013 Other completed Kaela Car [place] - [facility] 05/14/2018 15:04:41 10/16/2000 Other completed Kaela Car [place] - [facility] 05/14/2018 15:04:22 10/16/1999 Other completed Kaela Car [place] - [facility] 05/14/2018 15:03:54 Imaging Results None recorded. Procedure Notes None recorded. Medical Equipment None Reported. Allergies No known drug allergies Medications Name Sig Start Date Stop Date Status Note LastModified by Organization Details LastModified Time amoxicilli n 500 mg capsule 06/03 completed Not Available Not Available Not Available anastrozol e 1 mg tablet 1/2 tablet once a week 06/03 completed Not Available Not Available Not Available prednisone 10 mg tablet 06/03 completed Not Available Not Available Not Available azithromyc in 250 mg tablet 11/29 completed Not Available Not Available Not Available metoprolol succinate ER 50 mg tablet,ext ended release 24 hr TAKE 1 TABLET BY MOUTH EVERY DAY active Not Available Not Available No t Available valacyclov ir 1 gram tablet 06/03 completed pt not taking rm 11/29/19 Not Available Not Available Not Available metoprolol succinate ER 100 mg tablet,ext ended release 24 hr Take 1 tablet every day by oral route. active Not Available Not Available No t Available doxepin 10 mg capsule 11/29 completed Not Available Not Available Not Available sulfametho xazole 800 mg-trimeth oprim 160 mg tablet 06/03 completed Not Available Not Available Not Available BD Regular Bevel [place] 18 gauge x 1 active Not Available Not Available N ot Available aspirin 325 mg tablet,del ayed release TAKE 1 TABLET BY MOUTH EVERY DAY DIRECTED active Not Available Not Available No t Available benzonatat e 100 mg capsule 11/29 completed Not Available Not Available Not Available montelukas t 10 mg tablet active pt not taking 0 Not Available Not Available Not Available testostero ne cypionate 200 mg/mL intramuscu lar oil 1 injectio n q 2 weeks active Not Available Not Available No t Available methylpred nisolone 4 mg tablets in a dose pack 11/29 completed Not Available Not Available Not Available fluticason e propionate 50 mcg/actuat ion nasal spray,susp ension 11/29 completed Not Available Not Available Not Available BD Luer-Ruben Syringe 3 mL 21 gauge x 1 active Not Available Not Available N ot Available amoxicilli n 875 mg-potassi um clavulanat e 125 mg tablet 11/29 completed Not Available Not Available Not Available Ciprodex 0.3 %-0.1 % ear drops,susp ension 05/14 completed Not Available Not Available Not Available Cialis 20 mg tablet 09/05 completed Not Available Not Available Not Available metoprolol tartrate 25 mg tablet Take 1 tablet twice a day by oral route. 03/08 completed Not Available Not Available Not Available Vitals Date Recorded Body height Body mass index (BMI) Body weight Heart rate Respiratory rate Oxygen saturation Oxygen saturation in Arterial blood by Pulse oximetry Systolic blood pressure Diastolic blood pressure Provider Name and Address Organization Details Last Updated DateTime 0 187.96 cm 28.2 kg/m2 51758.3 2 g 60 /min 18 /min 98 % 98 % 106 mm[Hg] 84 mm[Hg] Marina Terrazas [facility] [place] 0 12:33:22 Date Recorded Body height Provider Name an d Address Organization Details Last Updated DateTime 03/08/2019 187.96 cm Verona Bakervins [facility] [place] 03/08/2019 10:04:09 Date Recorded Body mass index (BMI) Body weight Heart rate Oxygen saturation Oxygen saturation in Arterial blood by Pulse oximetry Systolic blood pressure Diastolic blood pressure Provider Name and Address Organization Details Last Updated DateTime 9 28.9 kg/m2 070067. 28 g 70 /min 98 % 98 % 130 mm[Hg] 90 mm[Hg] Nishi Covarrubias [facility] [place] 9 10:08:11 Date Recorded Body height Heart rate Oxygen saturation Oxygen saturation in Arterial blood by Pulse oximetry Body mass index (BMI) Body weight Systolic blood pressure Diastolic blood pressure Provider Name and Address Organization Details Last Updated DateTime 0 187.96 cm 57 /min 97 % 97 % 29.6 kg/m2 010440. 04 g 102 mm[Hg] 62 mm[Hg] JOHNNY BOWDEN [facility] [place] 0 15:20:29 Date Recorded Body height Body mass index (BMI) Body weight Oxygen saturation Oxygen saturation in Arterial blood by Pulse oximetry Body temperature Heart rate Systolic blood pressure Diastolic blood pressure Provider Name and Address Organization Details Last Updated DateTime 0 187.96 cm 30.6 kg/m2 778311. 98 g 99 % 99 % 97.4 [degF] 68 /min 142 mm[Hg] 108 mm[Hg] JOHNNY BOWDEN [facility] [place] 0 14:05:32 Date Recorded Body height Provider Name an d Address Organization Details Last Updated DateTime 08/26/2020 187.96 cm Marina Terrazas [facility] [place] 08/26/2020 12:14:23 Social History Question Answer Notes LastModified by [employer] Details LastModified Time Tobacco Smoking Status Never Smoker Not Available [email or web address] 08/18/2020 03:30:41 What Is Your Level Of Caffeine Consumption? Occasional [id number] Information not available 08/18/2020 What Type Of Diet Are You Following? REGULAR [id number] Information not available 08/18/2020 Marital Status [email or web address] Informatio n not available 05/14/2018 What Was The Date Of Your Most Recent Tobacco Screening? 02/13/2019 [id number] Information not available 08/18/2020 How Many Children Do You Have? 4 [id number] Information not available 08/18/2020 How Much Tobacco Do You Smoke? No [id number] Information not available 08/18/2020 How Many Years Have You Smoked Tobacco? 0 [id number] Information not available 08/18/2020 Sex: Unknown Functional Status Question Answer Note LastModified by [employer] Details LastModified Time What is your level of alcohol consumption? None [id number] Information not available 08/18/2020 Do you or have you ever used smokeless tobacco? 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 Never used electronic cigarettes [id number] Information not available 08/18/2020 Mental Status None recorded. Family History Relationship Description Onset Age of this Age Resolved Age Notes LastModified by Organization Details LastModified Time Maternal Grandmother Myocardial infarction 43 great grandf ather with VT in 50s [email or web address] Not available 09/05/2018 13:12:34 Brother Drug abuse [email or web address] Not availabl e 05/11/2018 16:34:31 Brother Heart disease [email or web address] Not available 2017 16:34:43 Father Gastroesopha geal reflux disease [email or web address] Not available 2017 16:35:30 Mother Scoliosis deformity of spine [email or web address] Not available 2017 16:35:51 Medical History Condition Response Atrial Fibrillation Y Arrhythmia Y Past Encounters Encounter ID Performer Location Encounter Start Date Encounter Closed Date Diagnosis/Indication Diagnosis SNOMED-CT Code Diagnosis ICD10 Code Diagnosis Note [id number] Nadir Bruner MD [facility] OFFICE [address] [place] [address] 05/14/2018 14:19:18 05/23/2018 17:48:39 Paroxysmal atrial fibrillation 277995728 I48.0 Hospitaliz ed at [place] on 05/10/18 with Afib with RVR and NSVT. Intermitte ntly symptomati c with palpitatio ns and dizziness. Will order 30 day Event Monitor to evaluate how often he is going into Afib and to assess rate control. Increased to metoprolol tartate 25 mg bid 05/14/18. Eliminate 20-25 oz of Mountain Dew. Normal TSH 04/2018. Work release: principal electrical engineer. Obtain from [facility]: prior 48 hr Holter and stress test 03/2018. Nonsustain ed ventricular tachycardia 611084389 I47.2 Will order 30 day Event Monitor to evaluate how often he is going into Afib and to assess rate control, with assessment for NSVT frequency. Left ventr icular hypertrophy 88517470 I51.7 Mild. No hx of HTN. [id number] Nadir Bruner MD [facility] OFFICE [address] [place] [address] 07/02/2018 10:57:27 07/02/2018 12:12:26 Paroxysmal atrial fibrillation 184373766 I48.0 Hospitaliz ed at [place] on 05/10/18 with Afib with RVR and NSVT. Intermitte ntly symptomati c with palpitatio ns and dizziness, much improved on increased metoprolol . He had an unremarkab le 30 d event monitor on 05/15/18, showing baseline rhythm as NSR, sinus tachycardi a, sinus bradycardi a. Max HR 124 bpm, minimum 56 bpm. No PAC's or PVC's. No NSVT. No signs of atrial fibrillati on or other arrhythmia . Increased to metoprolol tartate 25 mg bid 05/14/18. Eliminate 20-25 oz of Mountain Dew. Normal TSH 04/2018. Work release: principal electrical engineer. Obtain from [facility]: prior 48 hr Holter and stress test 03/2018. Nonsustain ed ventricular tachycardia 912429158 I47.2 Improved palpitatio ns. No NSVT on 30 d monitor. He had an unremarkab le event monitor on 05/15/18, showing baseline rhythm as NSR, sinus tachycardi a, sinus bradycardi a. Max HR 124 bpm, minimum 56 bpm. No PAC's or PVC's. No signs of atrial fibrillati on or other arrhythmia . Left ventr icular hypertrophy 64981005 I51.7 Mild. No hx of HTN. [id number] Nadir Bruner MD [facility] OFF[facility] [address] [place] [address] 09/05/2018 11:45:23 09/05/2018 13:17:43 Paroxysmal atrial fibrillation 806275273 I48.0 In NSR on EKG 09/05/18, with much less symptoms on metoprolol . Hospitaliz ed at [place] on 05/10/18 with Afib with RVR and NSVT. Intermitte ntly symptomati c with palpitatio ns and dizziness, much improved on increased metoprolol . He had an unremarkab le 30 d event monitor on 05/15/18, showing baseline rhythm as NSR, sinus tachycardi a, sinus bradycardi a. Max HR 124 bpm, minimum 56 bpm. No PAC's or PVC's. No NSVT. No signs of atrial fibrillati on or other arrhythmia . Continue metoprolol which has improved symptoms, but switch to ER. Eliminate 20-25 oz of Mountain Dew. Normal TSH 04/2018. Work release: principal electrical engineer. Nonsustain ed ventricular tachycardia 231770278 I47.2 Improved palpitatio ns. No NSVT on 30 d monitor. He had an unremarkab le event monitor on 05/15/18, showing baseline rhythm as NSR, sinus tachycardi a, sinus bradycardi a. Max HR 124 bpm, minimum 56 bpm. No PAC's or PVC's. No signs of atrial fibrillati on or other arrhythmia . Left ventr icular hypertrophy 08818987 I51.7 Mild to borderline LVH. No hx of HTN. Family his tory of Cardiovascular disease 246294336 Z82.49 Maternal grandmothe r with fatal VT in early 40s. Had 05/09/18: TC 170 ,TG 117 ,HDL 39 ,LDL 106. Needs to keep LDL less than 70-100, and HDL more than 40. Reduce fat and cholestero l in diet. He had stress test 03/2018 and 48 hour Holter Monitor at another cardiologi st office, [facility]. Obtain results. [id number] Nadir Bruner MD [place] [facility] [address] [place] [address] 02/13/2019 11:53:03 02/13/2019 13:17:02 Paroxysmal atrial fibrillation 779513623 I48.0 In NSR on EKG 09/05/18, 02/13/19, with much less symptoms on metoprolol . Hospitaliz ed at [place] on 05/10/18 with Afib with RVR and NSVT. Intermitte ntly symptomati c with palpitatio ns and dizziness, much improved on increased metoprolol . He had an unremarkab le 30 d event monitor on 05/15/18, showing baseline rhythm as NSR, sinus tachycardi a, sinus bradycardi a. Max HR 124 bpm, minimum 56 bpm. No PAC's or PVC's. No NSVT. No signs of atrial fibrillati on or other arrhythmia . Continue metoprolol which has improved symptoms, but switch to ER. Continue ASA 325 mg qd. Eliminate 20-25 oz of Mountain Dew. Normal TSH 04/2018. Work release: principal electrical engineer. Nonsustain ed ventricular tachycardia 155145137 I47.2 Improved palpitatio ns. No NSVT on 30 d monitor. He had an unremarkab le event monitor on 05/15/18, showing baseline rhythm as NSR, sinus tachycardi a, sinus bradycardi a. Max HR 124 bpm, minimum 56 bpm. No PAC's or PVC's. No signs of atrial fibrillati on or other arrhythmia . Left ventr icular hypertrophy 31778286 I51.7 Mild to borderline LVH. No hx of HTN. Family his tory of Cardiovascular disease 202596552 Z82.49 Maternal grandmothe r with fatal VT in early 40s. Had 05/09/18: TC 170 ,TG 117 ,HDL 39 ,LDL 106. Needs to keep LDL less than 70-100, and HDL more than 40. Reduce fat and cholestero l in diet. He had stress test 03/2018 and 48 hour Holter Monitor at another cardiologi st office, [facility]. Obtain results. Chest pain 42615329 R07. 2 Previously , treadmill only stress test with [facility] 06/01/15: negative. Had Lexiscan stress test 03/2018 with [facility]: negative for ischemia, with fixed anterior defect, likely artifact, LVEF 59%. Reports different increased daily chest pain for 5 days. Patient presents with chest pain with atypical features. Given the history, exam findings and high cardiac risk factors, I feel additional investigat ion is warranted. I have made arrangemen ts in the near future for an exercise stress nuclear test.# an exercise stress echocardio gram to evaluate for any ischemia, structural heart disease, or exercise induced arrythmia an exercise stress nuclear test an exercise stress nuclear test (stress echo not possible due to COPD or obesity) a n exercise stress nuclear test and an echocardio gram to evaluate for any ischemia or structural heart disease a pharmacolo gic stress nuclear test due to reduced functional capacity or conduction abnormalit y cardiac catheteriz ation an echocardio gram to evaluate left ventricula r function and any structural heart disease or valvular abnormalit y. Obtain echo to evaluate for structural /functiona l disease. The procedure was discussed with the patient, and risks, benefits, and alternativ e options were explained. Appropriat e labwork has not been performed recently, therefore I have made arrangemen ts for further testing. I have asked the patient to curtail exercise and activities until our investigat ion is complete. I have made the following adjustment s to the present medical regimen. [id number] MD Esthela Dawson Office [address] [place] [address] 03/08/2019 09:58:19 03/08/2019 11:19:19 Chest pain 51443048 R07.2 Atypical, in setting of recent resolving shingles of left chest. Much improved. Had Lexiscan stress test 03/2018 with [facility]: negative for ischemia, with fixed anterior defect, likely artifact, LVEF 59%. Previously , treadmill only stress test with [facility] 06/01/15: negative. Paroxysmal atrial fibrillation 782882983 I48.0 In NSR on EKG 09/05/18, 02/13/19, with much less symptoms on metoprolol . Hospitaliz ed at [place] on 05/10/18 with Afib with RVR and NSVT. Intermitte ntly symptomati c with palpitatio ns and dizziness, much improved on increased metoprolol . He had an unremarkab le 30 d event monitor on 05/15/18, showing baseline rhythm as NSR, sinus tachycardi a, sinus bradycardi a. Max HR 124 bpm, minimum 56 bpm. No PAC's or PVC's. No NSVT. No signs of atrial fibrillati on or other arrhythmia . Continue metoprolol which has improved symptoms, but switch to ER. Continue ASA 325 mg qd. Eliminate 20-25 oz of Mountain Dew. Normal TSH 04/2018. Work release: principal electrical engineer. Nonsustain ed ventricular tachycardia 788440671 I47.2 Improved palpitatio ns. No NSVT on 30 d monitor. He had an unremarkab le event monitor on 05/15/18, showing baseline rhythm as NSR, sinus tachycardi a, sinus bradycardi a. Max HR 124 bpm, minimum 56 bpm. No PAC's or PVC's. No signs of atrial fibrillati on or other arrhythmia . Left ventr icular hypertrophy 41132910 I51.7 Mild to borderline LVH. No hx of HTN. Family his tory of Cardiovascular disease 813903301 Z82.49 Maternal grandmothe r with fatal VT in early 40s. Had 05/09/18: TC 170 ,TG 117 ,HDL 39 ,LDL 106. Needs to keep LDL less than 70-100, and HDL more than 40. Reduce fat and cholestero l in diet. Patient does not want to repeat FLP now or start a statin. FLP in 5 mo. [id number] MD Esthela [facility] Office [address] [place] [address] 11/29/2019 10:44:39 11/29/2019 12:49:54 Chest pain 36981245 R07.2 Atypical, in setting of recent resolving shingles of left chest. Much improved. Had Lexiscan stress test 03/2018 with [facility]: negative for ischemia, with fixed anterior defect, likely artifact, LVEF 59%. Previously , treadmill only stress test with [facility] 06/01/15: negative. Paroxysmal atrial fibrillation 760003206 I48.0 In NSR on EKG 09/05/18, 02/13/19, with much less symptoms on metoprolol . Hospitaliz ed at [place] on 05/10/18 with Afib with RVR and NSVT. Intermitte ntly symptomati c with palpitatio ns and dizziness, much improved on increased metoprolol . He had an unremarkab le 30 d event monitor on 05/15/18, showing baseline rhythm as NSR, sinus tachycardi a, sinus bradycardi a. Max HR 124 bpm, minimum 56 bpm. No PAC's or PVC's. No NSVT. No signs of atrial fibrillati on or other arrhythmia . Continue metoprolol which has improved symptoms, but switch to ER. Continue ASA 325 mg qd. Eliminate 20-25 oz of Mountain Dew. Normal TSH 04/2018. Work release: principal electrical engineer. Nonsustain ed ventricular tachycardia [id number] I47.2 Improved palpitatio ns. No NSVT on 30 d monitor. He had an unremarkab le event monitor on 05/15/18, showing baseline rhythm as NSR, sinus tachycardi a, sinus bradycardi a. Max HR 124 bpm, minimum 56 bpm. No PAC's or PVC's. No signs of atrial fibrillati on or other arrhythmia . Left ventr icular hypertrophy [id number] I51.7 Mild to borderline LVH. No hx of HTN. Family his tory of Cardiovascular disease [id number] Z82.49 Maternal grandmothe r with fatal VT in early 40s. Had 05/09/18: TC 170 ,TG 117 ,HDL 39 ,LDL 106. Needs to keep LDL less than 70-100, and HDL more than 40. Reduce fat and cholestero l in diet. Patient does not want to repeat FLP now or start a statin. FLP in 5 mo. [id number] Nadir Bruner MD [facility] [address] [place] [address] 06/03/2020 14:46:56 06/03/2020 16:12:42 Chest pain [id number] R07.2 Atypical, in setting of recent resolving shingles of left chest. Much improved. Had Lexiscan stress test 03/2018 with [facility]: negative for ischemia, with fixed anterior defect, likely artifact, LVEF 59%. Previously , treadmill only stress test with [facility] 06/01/15: negative. Paroxysmal atrial fibrillation [id number] I48.0 In NSR on EKG 09/05/18, 02/13/19, 06/03/20, with less symptoms on metoprolol . Hospitaliz ed at [place] on 05/10/18 with Afib with RVR and NSVT. Intermitte ntly symptomati c with palpitatio ns and dizziness, much improved on increased metoprolol . He had an unremarkab le 30 d event monitor on 05/15/18, showing baseline rhythm as NSR, sinus tachycardi a, sinus bradycardi a. Max HR 124 bpm, minimum 56 bpm. No PAC's or PVC's. No NSVT. No signs of atrial fibrillati on or other arrhythmia . Continue metoprolol which has improved symptoms, but switch to ER. Continue ASA 325 mg qd. Normal TSH 04/2018. 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 Reports increased frequency and duration of palpitatio ns for a few minutes up to an hour in the last 4 months since 12/2019. Obtain 7 day Zoll box car bracer. Obtain CMP, Mg, TSH, FLP. Reduce 40 oz of daily Mountain Dew. Nonsustain ed ventricular tachycardia [id number] I47.2 Improved palpitatio ns. No NSVT on 30 d monitor. He had an unremarkab le event monitor on 05/15/18, showing baseline rhythm as NSR, sinus tachycardi a, sinus bradycardi a. Max HR 124 bpm, minimum 56 bpm. No PAC's or PVC's. No signs of atrial fibrillati on or other arrhythmia . Left ventr icular hypertrophy [id number] I51.7 Mild to borderline LVH. No hx of HTN. Family his tory of Cardiovascular disease [id number] Z82.49 Maternal grandmothe r with fatal VT in early 40s. Had 05/09/18: TC 170 ,TG 117 ,HDL 39 ,LDL 106. Needs to keep LDL less than 70-100, and HDL more than 40. Reduce fat and cholestero l in diet. Patient does not want to repeat FLP now or start a statin. Obtain CMP, Mg, FLP. [id number] Nadir Bruner MD [facility] [address] [place] [address] 08/05/2020 13:58:33 08/05/2020 15:00:56 Chest pain [id number] R07.2 Atypical, in setting of recent resolving shingles of left chest. Much improved. Had Lexiscan stress test 03/2018 with [facility]: negative for ischemia, with fixed anterior defect, likely artifact, LVEF 59%. Previously , treadmill only stress test with [facility] 06/01/15: negative. Obtain Lexiscan nuclear stress testing to evaluate for ischemia given new onset atrial flutter and atypical chest pain. Paroxysmal atrial fibrillation [id number] I48.0 He has history of paroxysmal afib with RVR, now with paroxysmal atrial flutter with RVR. In NSR on EKG 09/05/18, 02/13/19, 06/03/20, with less symptoms on metoprolol . Hospitaliz ed at [place] on 05/10/18 with Afib with RVR and NSVT. Intermitte ntly symptomati c with palpitatio ns and dizziness, much improved on increased metoprolol . He had an unremarkab le 30 d event monitor on 05/15/18, showing baseline rhythm as NSR, sinus tachycardi a, sinus bradycardi a. Max HR 124 bpm, minimum 56 bpm. No PAC's or PVC's. No NSVT. No signs of atrial fibrillati on or other arrhythmia . Continue metoprolol which has improved symptoms, but switch to ER. Continue ASA 325 mg qd. Normal TSH 04/2018. 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 Reports increased frequency and duration of palpitatio ns for a few minutes up to an hour in the last 4 months since 12/2019. Reduce 40 oz of daily Mountain Dew. He has history of paroxysmal afib with RVR, now with paroxysmal atrial flutter with RVR. Improve rate control. Obtain EP referral [facility] for considerat ion of possible ablation for symptomati c paroxysmal atrial flutter with RVR. Had 7 day Zoll box car bracer 06/14/20: Symptoms correlated with paroxysmal atrial flutter and atrial fibrillati on with RVR and with NSVT (6 beats max.). Had 08/04/20 BMP: NA 140, K 4.1, CL 102, CO2 32, GLU 118, BUN 9, CR 1.00, AST 25, ALT 30 08/04/20 M.0 08/04/20 TSH: 3.750 normal. Increased to metoprolol succinate 100 mg qd 08/05/20. Markedly reduce 30-40 oz Mountain Dew intake. Nonsustain ed ventricular tachycardia [id number] I47.2 Improved palpitatio ns. No NSVT on 30 d monitor. He had an unremarkab le event monitor on 05/15/18, showing baseline rhythm as NSR, sinus tachycardi a, sinus bradycardi a. Max HR 124 bpm, minimum 56 bpm. No PAC's or PVC's. No signs of atrial fibrillati on or other arrhythmia . Had 7 day Zoll box car bracer 06/14/20: Symptoms correlated with paroxysmal atrial flutter and atrial fibrillati on with RVR and with NSVT (6 beats max.). Obtain echo to evaluate for structural /functiona l disease. Left ventr icular hypertrophy [id number] I51.7 Mild to borderline LVH. No hx of HTN. Blood pressure is elevated today, but this is only one reading, will keep close follow up, and consider medication change if blood pressure is still elevated next visit. Increased to metoprolol succinate 100 mg qd 08/05/20. Family his tory of Cardiovascular disease [id number] Z82.49 Maternal grandmothe r with fatal VT in early 40s. Had 05/09/18: TC 170 ,TG 117 ,HDL 39 ,LDL 106. Needs to keep LDL less than 70-100, and HDL more than 40. Reduce fat and cholestero l in diet. Patient does not want to repeat FLP now or start a statin. 08/04/20 LIPID: TC 159, TR 167, HDL 29, LDL 104 Improve diet control. [id number] Nadir Bruner MD [place] [facility] [address] [place] [address] 08/26/2020 12:12:53 08/26/2020 13:44:13 Paroxysmal atrial fibrillation [id number] I48.0 He has history of paroxysmal afib with RVR, now with paroxysmal atrial flutter with RVR. In NSR on EKG 09/05/18, 02/13/19, 06/03/20, with less symptoms on metoprolol . Hospitaliz ed at [place] on 05/10/18 with Afib with RVR and NSVT. Intermitte ntly symptomati c with palpitatio ns and dizziness, much improved on increased metoprolol . He had an unremarkab le 30 d event monitor on 05/15/18, showing baseline rhythm as NSR, sinus tachycardi a, sinus bradycardi a. Max HR 124 bpm, minimum 56 bpm. No PAC's or PVC's. No NSVT. No signs of atrial fibrillati on or other arrhythmia . Continue metoprolol which has improved symptoms, but switch to ER. Continue ASA 325 mg qd. Normal TSH 04/2018. 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 Reports increased frequency and duration of palpitatio ns for a few minutes up to an hour in the last 4 months since 12/2019. Reduce 40 oz of daily Mountain Dew. He has history of paroxysmal afib with RVR, now with paroxysmal atrial flutter with RVR. Improve rate control. Had 7 day Zoll box car bracer 06/14/20: Symptoms correlated with paroxysmal atrial flutter and atrial fibrillati on with RVR and with NSVT (6 beats max.). Had 08/04/20 BMP: NA 140, K 4.1, CL 102, CO2 32, GLU 118, BUN 9, CR 1.00, AST 25, ALT 30 08/04/20 M.0 08/04/20 TSH: 3.750 normal. Increased to metoprolol succinate 100 mg qd 08/05/20, with less subsequent palpitatio ns. Markedly reduce 30-40 oz Mountain Dew intake. Obtained EP referral with Dr. Ronald Epperson, EP, [facility], for considerat ion of possible ablation for symptomati c paroxysmal atrial flutter with RVR. Send to Dr. Epperson actual strips from monitor 05/2020. Chest pain [id number] R07. 2 Atypical, in setting of recent resolving shingles of left chest. Much improved. Had Lexiscan cardiolite stress test 08/19/20: Adequate stress with lexiscan. Negative lexiscan stress test for ischemia. Normal LV systolic function. Compared to last study in March 2018, there are no changes. Had Lexiscan stress test 03/2018 with [facility]: negative for ischemia, with fixed anterior defect, likely artifact, LVEF 59%. Had ECHO done in 08/18/20 showed borderline LV hypertroph y. There is normal global systolic function and contractil ity. The estimated left ventricle ejection fraction is 55-60% (normal). There is mild thickening of mitral valve anterior leaflet. There is trace mitral regurgitat ion. There is trace tricuspid regurgitat ion. Nonsustain ed ventricular tachycardia [id number] I47.2 Improved palpitatio ns. He had an unremarkab le event monitor on 05/15/18, showing baseline rhythm as NSR, sinus tachycardi a, sinus bradycardi a. Max HR 124 bpm, minimum 56 bpm. No PAC's or PVC's. No signs of atrial fibrillati on or other arrhythmia . Had 7 day Zoll box car bracer 06/14/20: Symptoms correlated with paroxysmal atrial flutter and atrial fibrillati on with RVR and with NSVT (6 beats max.). Left ventr icular hypertrophy [id number] I51.7 Mild to borderline LVH. No hx of HTN. Blood pressure is elevated today, but this is only one reading, will keep close follow up, and consider medication change if blood pressure is still elevated next visit. Increased to metoprolol succinate 100 mg qd 08/05/20. Family his tory of Cardiovascular disease [id number] Z82.49 Maternal grandmothe r with fatal VT in early 40s. Had 05/09/18: TC 170 ,TG 117 ,HDL 39 ,LDL 106. Needs to keep LDL less than 70-100, and HDL more than 40. Reduce fat and cholestero l in diet. Patient does not want to repeat FLP now or start a statin. 08/04/20 LIPID: TC 159, TR 167, HDL 29, LDL 104 Improve diet control. Health Concerns Section Related Observation LastModified by Organization Detai ls LastModified Time None Recorded Concern Status LastModified by Organization Details LastModified Time None Recorded Advance Directives Directive None Recorded Payers Insurance Date Sequence Insurance Name Policy Number Policy De La Rosa Covered Member ID De La Rosa Member ID Guarantor Name 08/24/2020 1 [id number] ([place]) [id number] Daniel Colon [id number] Daniel Watt Isaiah Notes Date Note Type Note Provider Name and Address Organization Details Recorded Time 03/08/2019 text/html 03/08/19 CC : Arrhythmia 42 years-old white man with paroxysmal atrial fibrillation, NSVT, family history of premature VT, is here for follow up paroxysmal atrial fibrillation. He was last in our office 3 wks. ago. Patient had development of rash with shingles over left chest that progressed since 02/13/19 and is currently resolving with minimal residual chest pain and pressure Previously, he reported 02/13/19 a 5 day history of constant mild-moderate left chest pain/pressure with some radiation to left shoulder and left hand numbness. Occasional associated dyspnea. No associated diaphoresis or nausea. EKG 02/13/19: NSR, no acute ST or T wave changes. Has history of left scapular chronic muscle pain for 10 years, increased in last 1-2 weeks. Since then he continues to have palpitation episodes with less severe and less frequent associated palpitations. No recurrence of lightheadedness from early 2017. Less dyspnea. Previously, he was at [facility] on 05/09/18 for palpitations, lightheadedness, shortness of breath and chest tightness lasting a few hours. Episodes were going on for a few months and becoming more frequent and more intense. He was diagnosed with new onset paroxysmal atrial fibrillation with rapid ventricular response and NSVT. CXR was normal. Negative serial troponins. Echo showed mild LVH , normal LV systolic function , EF 62%, mild MR, Trace AR. He was started on Metoprolol 12.5 mg BID, ASA 325 mg, with decrease in sense of most rapid palpitations, but still with sense of irregular rhythm daily for hours to days at a time. He has less shortness of breath, no lightheadedness with no pre-syncope or syncope. The patient used to drink a lot of caffeine, a 2 L of Mountain Dew. While on the 30 Day Event Monitor, he decreased his caffeine intake, but now that the Event Monitor is off he is back to his old high caffeine intake. He has been on Testosterone injections for 2 months. He has never seen a shactor helper before. No prior left heart catheterization per patient. He had treadmill only stress test with [facility] 06/01/15: negative. Had Lexiscan stress test 03/2018 with [facility]: negative for ischemia, with fixed anterior defect, likely artifact, LVEF 59%. No known history of coronary artery disease. No history of previous myocardial infarction. No history of heart failure. No known history of valvular heart disease. New onset known arrhythmia, Afib and NSVT. He is active and runs 3-4 miles occasionally and will increase. Reports decreasing nonexertional chest pain. Intermittent improved shortness of breath with activity, with palpitation episodes. Intermittent dyspnea on exertion improved. Reports palpitations for a few minutes. No orthopnea. No PND's. No dizziness with palpitation episodes. No syncope or near syncope. No leg swelling. No nausea and vomiting. No major bleeding events. No side effects from medications. Had ECHO on 05/10/18 showing normal left ventricular size. Mild concentric left ventricular hypertrophy. Normal global left ventricular systolic function. Normal left ventricular diastolic function. Ejection fraction is measured at 62%. Mild mitral regurgitation. Trace aortic regurgitation. Had Lexiscan stress test 03/2018 with [facility]: negative for ischemia, with fixed anterior defect, likely artifact, LVEF 59%. He had an unremarkable 30 day event monitor on 05/15/18, showing baseline rhythm as NSR, sinus tachycardia, sinus bradycardia. Max HR 124 bpm, minimum 56 bpm. No PAC's or PVC's. No signs of atrial fibrillation or other arrhythmia. Reports snoring. No daytime somnolence. Results from this visit, or from the past: 05/09/18: A 140 , K 4.2 ,CL 100 ,CO2 30 ,GLU 95 ,BUN 15 ,CR 1.10, TC 170 ,TG 117 ,HDL 39 ,LDL 106, HB16.1, HT 48.2 05/09/18: TSH 2.3 05/09/18: TC 170, TG 117, HDL 39, LDL 106 05/09/2018: WBC 6.4, HGB 16.1, HCT 45.2, PLT 252 EKG 02/13/19 : Incomplete rbbb EKG 09/05/18 ; Incomplete rbbb EKG 05/14/18 : Sinus bradycardia Incomplete rbbb EKG 05/11/18: Sinus rhythm. Incomplete bundle branch block. Borderline ECG. S, echocardiogram ECHO 05/10/18: Normal left ventricular size. Mild concentric left ventricular hypertrophy. Normal global left ventricular systolic function. Normal left ventricular diastolic function. Ejection fraction is measured at 62%. XR 05/09/18 CHEST 2 VIEW: No acute cardiopulmonary findings. Nadir Bruner [facility] 03/08/2019 11:18:43 11/29/2019 text/html 03/08/19 CC : Arrhythmia 42 years-old white man with paroxysmal atrial fibrillation, NSVT, family history of premature VT, is here for follow up paroxysmal atrial fibrillation. He was last in our office 9 month ago. Patient had development of rash with shingles over left chest that progressed since 02/13/19 and is currently resolving with minimal residual chest pain and pressure Previously, he reported 02/13/19 a 5 day history of constant mild-moderate left chest pain/pressure with some radiation to left shoulder and left hand numbness. Occasional associated dyspnea. No associated diaphoresis or nausea. EKG 02/13/19: NSR, no acute ST or T wave changes. Has history of left scapular chronic muscle pain for 10 years, increased in last 1-2 weeks. Since then he continues to have palpitation episodes with less severe and less frequent associated palpitations. No recurrence of lightheadedness from early 2017. Less dyspnea. Previously, he was at [facility] on 05/09/18 for palpitations, lightheadedness, shortness of breath and chest tightness lasting a few hours. Episodes were going on for a few months and becoming more frequent and more intense. He was diagnosed with new onset paroxysmal atrial fibrillation with rapid ventricular response and NSVT. CXR was normal. Negative serial troponins. Echo showed mild LVH , normal LV systolic function , EF 62%, mild MR, Trace AR. He was started on Metoprolol 12.5 mg BID, ASA 325 mg, with decrease in sense of most rapid palpitations, but still with sense of irregular rhythm daily for hours to days at a time. He has less shortness of breath, no lightheadedness with no pre-syncope or syncope. The patient used to drink a lot of caffeine, a 2 L of Mountain Dew. While on the 30 Day Event Monitor, he decreased his caffeine intake, but now that the Event Monitor is off he is back to his old high caffeine intake. He has been on Testosterone injections for 2 months. He has never seen a shactor helper before. No prior left heart catheterization per patient. He had treadmill only stress test with [facility] 06/01/15: negative. Had Lexiscan stress test 03/2018 with [facility]: negative for ischemia, with fixed anterior defect, likely artifact, LVEF 59%. No known history of coronary artery disease. No history of previous myocardial infarction. No history of heart failure. No known history of valvular heart disease. New onset known arrhythmia, Afib and NSVT. He is active and runs 3-4 miles occasionally and will increase. Reports decreasing nonexertional chest pain. Intermittent improved shortness of breath with activity, with palpitation episodes. Intermittent dyspnea on exertion improved. Reports palpitations for a few minutes. No orthopnea. No PND's. No dizziness with palpitation episodes. No syncope or near syncope. No leg swelling. No nausea and vomiting. No major bleeding events. No side effects from medications. Had ECHO on 05/10/18 showing normal left ventricular size. Mild concentric left ventricular hypertrophy. Normal global left ventricular systolic function. Normal left ventricular diastolic function. Ejection fraction is measured at 62%. Mild mitral regurgitation. Trace aortic regurgitation. Had Lexiscan stress test 03/2018 with [facility]: negative for ischemia, with fixed anterior defect, likely artifact, LVEF 59%. He had an unremarkable 30 day event monitor on 05/15/18, showing baseline rhythm as NSR, sinus tachycardia, sinus bradycardia. Max HR 124 bpm, minimum 56 bpm. No PAC's or PVC's. No signs of atrial fibrillation or other arrhythmia. Reports snoring. No daytime somnolence. Results from this visit, or from the past: 05/09/18: A 140 , K 4.2 ,CL 100 ,CO2 30 ,GLU 95 ,BUN 15 ,CR 1.10, TC 170 ,TG 117 ,HDL 39 ,LDL 106, HB16.1, HT 48.2 05/09/18: TSH 2.3 05/09/18: TC 170, TG 117, HDL 39, LDL 106 05/09/2018: WBC 6.4, HGB 16.1, HCT 45.2, PLT 252 09/05/18 EKG: Incomplete rbbb. EKG 02/13/19 : Incomplete rbbb EKG 09/05/18 ; Incomplete rbbb EKG 05/14/18 : Sinus bradycardia Incomplete rbbb EKG 05/11/18: Sinus rhythm. Incomplete bundle branch block. Borderline ECG. S, echocardiogram Event Monitor 05/15/18 : Unremarkable event monitor. Symptoms did not correlate to any arrhythmia. ECHO 05/10/18: Normal left ventricular size. Mild concentric left ventricular hypertrophy. Normal global left ventricular systolic function. Normal left ventricular diastolic function. Ejection fraction is measured at 62%. XR 05/09/18 CHEST 2 VIEW: No acute cardiopulmonary findings. [facility] [place], [place] - [facility] 11/29/2019 17:24:37 06/03/2020 text/html 06/03/20 CC : Arrhythmia 44 year-old white man with paroxysmal atrial fibrillation, NSVT, family history of premature VT, is here for follow up paroxysmal atrial fibrillation. He was last in our office 6 months ago. Patient had development of rash with shingles over left chest that progressed since 02/13/19 and is currently resolving with minimal residual chest pain and pressure Previously, he reported 02/13/19 a 5 day history of constant mild-moderate left chest pain/pressure with some radiation to left shoulder and left hand numbness. Occasional associated dyspnea. No associated diaphoresis or nausea. EKG 02/13/19: NSR, no acute ST or T wave changes. Has history of left scapular chronic muscle pain for 10 years, increased in last 1-2 weeks. Reports increased frequency and duration of palpitations for a few minutes up to an hour in the last 4 months since 12/2019. Previously, he was at [facility] on 05/09/18 for palpitations, lightheadedness, shortness of breath and chest tightness lasting a few hours. Episodes were going on for a few months and becoming more frequent and more intense. He was diagnosed with new onset paroxysmal atrial fibrillation with rapid ventricular response and NSVT. CXR was normal. Negative serial troponins. Echo showed mild LVH , normal LV systolic function , EF 62%, mild MR, Trace AR. He was started on Metoprolol 12.5 mg BID, ASA 325 mg, with decrease in sense of most rapid palpitations, but still with sense of irregular rhythm daily for hours to days at a time. He has less shortness of breath, no lightheadedness with no pre-syncope or syncope. The patient used to drink a lot of caffeine, a 2 L of Mountain Dew. While on the 30 Day Event Monitor, he decreased his caffeine intake. He has been on Testosterone injections for 2 months. He has never seen a shactor helper before. No prior left heart catheterization per patient. He had treadmill only stress test with [facility] 06/01/15: negative. Had Lexiscan stress test 03/2018 with [facility]: negative for ischemia, with fixed anterior defect, likely artifact, LVEF 59%. No known history of coronary artery disease. No history of previous myocardial infarction. No history of heart failure. No known history of valvular heart disease. New onset known arrhythmia, Afib and NSVT. He is active and runs 3-4 miles occasionally and will increase. Reports infrequent nonexertional chest pain lasting for few seconds. Intermittent improved shortness of breath with activity, with palpitation episodes. Intermittent dyspnea on exertion improved. Reports increased frequency and duration of palpitations for a few minutes up to an hour in the last 4 months since 12/2019. No orthopnea. No PND's. No dizziness with palpitation episodes. No syncope or near syncope. No leg swelling. No nausea and vomiting. No major bleeding events. No side effects from medications. Had ECHO on 05/10/18 showing normal left ventricular size. Mild concentric left ventricular hypertrophy. Normal global left ventricular systolic function. Normal left ventricular diastolic function. Ejection fraction is measured at 62%. Mild mitral regurgitation. Trace aortic regurgitation. Had Lexiscan stress test 03/2018 with [facility]: negative for ischemia, with fixed anterior defect, likely artifact, LVEF 59%. He had an unremarkable 30 day event monitor on 05/15/18, showing baseline rhythm as NSR, sinus tachycardia, sinus bradycardia. Max HR 124 bpm, minimum 56 bpm. No PAC's or PVC's. No signs of atrial fibrillation or other arrhythmia. Reports snoring. No daytime somnolence. Results from this visit, or from the past: 01/08/20: Cr 1.03, K 3.7, 05/09/18: A 140 , K 4.2 ,CL 100 ,CO2 30 ,GLU 95 ,BUN 15 ,CR 1.10, TC 170 ,TG 117 ,HDL 39 ,LDL 106, HB16.1, HT 48.2 05/09/18: TSH 2.3 05/09/18: TC 170, TG 117, HDL 39, LDL 106 05/09/2018: WBC 6.4, HGB 16.1, HCT 45.2, PLT 252 EKG 11/29/19 Normal sinus rhythm WNL111/05/17 EKG: Incomplete rbbb. EKG 02/13/19 : Incomplete rbbb EKG 09/05/18 ; Incomplete rbbb EKG 05/14/18 : Sinus bradycardia Incomplete rbbb EKG 05/11/18: Sinus rhythm. Incomplete bundle branch block. Borderline ECG. S, echocardiogram Event Monitor 05/15/18 : Unremarkable event monitor. Symptoms did not correlate to any arrhythmia. ECHO 05/10/18: Normal left ventricular size. Mild concentric left ventricular hypertrophy. Normal global left ventricular systolic function. Normal left ventricular diastolic function. Ejection fraction is measured at 62%. XR 05/09/18 CHEST 2 VIEW: No acute cardiopulmonary findings. Nadir Bruner [place], [place] - [facility] 06/03/2020 16:12:40 08/05/2020 text/html 08/05/20 CC : Arrhythmia 44 year-old white man with paroxysmal atrial fibrillation, NSVT, family history of premature VT, is here for follow up paroxysmal atrial fibrillation. He was last in our office 2 months ago. Patient had development of rash with shingles over left chest that progressed since 02/13/19 and is currently resolved. Previously, he reported 02/13/19 a 5 day history of constant mild-moderate left chest pain/pressure with some radiation to left shoulder and left hand numbness. Occasional associated dyspnea. No associated diaphoresis or nausea. EKG 02/13/19: NSR, no acute ST or T wave changes. Has history of left scapular chronic muscle pain for 10 years, increased in last 1-2 weeks. Reports increased frequency and duration of palpitations for a few minutes up to an hour in the last 4 months since 12/2019. Previously, he was at [facility] on 05/09/18 for palpitations, lightheadedness, shortness of breath and chest tightness lasting a few hours. Episodes were going on for a few months and becoming more frequent and more intense. He was diagnosed with new onset paroxysmal atrial fibrillation with rapid ventricular response and NSVT. CXR was normal. Negative serial troponins. Echo showed mild LVH , normal LV systolic function , EF 62%, mild MR, Trace AR. He was started on Metoprolol 12.5 mg BID, ASA 325 mg, with decrease in sense of most rapid palpitations, but still with sense of irregular rhythm daily for hours to days at a time. He has less shortness of breath, no lightheadedness with no pre-syncope or syncope. The patient used to drink a lot of caffeine, a 2 L of Mountain Dew. While on the 30 Day Event Monitor, he decreased his caffeine intake. He has been on Testosterone injections for 2 months. He has never seen a shactor helper before. No prior left heart catheterization per patient. He had treadmill only stress test with [facility] 06/01/15: negative. Had Lexiscan stress test 03/2018 with [facility]: negative for ischemia, with fixed anterior defect, likely artifact, LVEF 59%. No known history of coronary artery disease. No history of previous myocardial infarction. No history of heart failure. No known history of valvular heart disease. New onset known arrhythmia, Afib and NSVT. He is active and runs 3-4 miles occasionally and will increase. Reports infrequent nonexertional shooting chest pain lasting for few seconds. Intermittent improved shortness of breath with activity, with palpitation episodes. Intermittent dyspnea on exertion increased. Reports increased frequency and duration of palpitations for a few minutes up to an hour or a day in the last 4 months since 12/2019. No orthopnea. No PND's. No dizziness with palpitation episodes. No syncope or near syncope. No leg swelling. No nausea and vomiting. No major bleeding events. No side effects from medications. Had ECHO on 05/10/18 showing normal left ventricular size. Mild concentric left ventricular hypertrophy. Normal global left ventricular systolic function. Normal left ventricular diastolic function. Ejection fraction is measured at 62%. Mild mitral regurgitation. Trace aortic regurgitation. Had Lexiscan stress test 03/2018 with [facility]: negative for ischemia, with fixed anterior defect, likely artifact, LVEF 59%. Had 7 day Zoll box car bracer 06/14/20: Symptoms correlated with paroxysmal atrial flutter and atrial fibrillation with RVR and with NSVT (6 beats max.). He had an unremarkable 30 day event monitor on 05/15/18, showing baseline rhythm as NSR, sinus tachycardia, sinus bradycardia. Max HR 124 bpm, minimum 56 bpm. No PAC's or PVC's. No signs of atrial fibrillation or other arrhythmia. Reports snoring. No daytime somnolence. Results from this visit, or from the past: 08/04/20 BMP: NA 140, K 4.1, CL 102, CO2 32, GLU 118, BUN 9, CR 1.00, AST 25, ALT M.010 TSH: 3.9644708/04/20 LIPID: TC 159, TR 167, HDL 29, LDL 104 01/08/20: Cr 1.03, K 3.7, 05/09/18: A 140 , K 4.2 ,CL 100 ,CO2 30 ,GLU 95 ,BUN 15 ,CR 1.10, TC 170 ,TG 117 ,HDL 39 ,LDL 106, HB16.1, HT 48.2 05/09/18: TSH 2.3 05/09/18: TC 170, TG 117, HDL 39, LDL 106 05/09/2018: WBC 6.4, HGB 16.1, HCT 45.2, PLT 252 06/03/20 EKG: Sinus bradycardia. RSR (V1)- nondiagnostic. Left atrial enlargement.EKG 11/29/19 Normal sinus rhythm WNL111/05/17 EKG: Incomplete rbbb. EKG 02/13/19 : Incomplete rbbb EKG 09/05/18 ; Incomplete rbbb EKG 05/14/18 : Sinus bradycardia Incomplete rbbb EKG 05/11/18: Sinus rhythm. Incomplete bundle branch block. Borderline ECG. Had 7 day Zoll box car bracer 06/14/20: Symptoms correlated with paroxysmal atrial flutter and atrial fibrillation with RVR and with NSVT (6 beats max.). Event Monitor 05/15/18 : Unremarkable event monitor. Symptoms did not correlate to any arrhythmia. ECHO 05/10/18: Normal left ventricular size. Mild concentric left ventricular hypertrophy. Normal global left ventricular systolic function. Normal left ventricular diastolic function. Ejection fraction is measured at 62%. XR 05/09/18 CHEST 2 VIEW: No acute cardiopulmonary findings. Nadir hodges [place] - [facility] 08/05/2020 15:00:54 08/26/2020 text/html 08/26/20 CC: Arrhythmia 44 year-old white man with paroxysmal atrial fibrillation, NSVT, family history of premature VT, is here for follow up paroxysmal atrial fibrillation. He was last in our office 1 month ago. Patient had development of rash with shingles over left chest that progressed since 02/13/19 and is currently resolved. Previously, he reported 02/13/19 a 5 day history of constant mild-moderate left chest pain/pressure with some radiation to left shoulder and left hand numbness. Occasional associated dyspnea. No associated diaphoresis or nausea. EKG 02/13/19: NSR, no acute ST or T wave changes. Has history of left scapular chronic muscle pain for 10 years, increased in last 1-2 weeks. Previously reported increased frequency and duration of palpitations for a few minutes up to an hour in the 4 months since 12/2019. SInce last visit, has had less palpitations since increased to metoprolol succinate 100 mg qd 08/05/20. Previously, he was at [facility] on 05/09/18 for palpitations, lightheadedness, shortness of breath and chest tightness lasting a few hours. Episodes were going on for a few months and becoming more frequent and more intense. He was diagnosed with new onset paroxysmal atrial fibrillation with rapid ventricular response and NSVT. CXR was normal. Negative serial troponins. Echo showed mild LVH , normal LV systolic function , EF 62%, mild MR, Trace AR. He was started on Metoprolol 12.5 mg BID, ASA 325 mg, with decrease in sense of most rapid palpitations, but still with sense of irregular rhythm daily for hours to days at a time. He has less shortness of breath, no lightheadedness with no pre-syncope or syncope. The patient used to drink a lot of caffeine, a 2 L of Mountain Dew. While on the 30 Day Event Monitor, he decreased his caffeine intake. He has been on Testosterone injections for 2 months. He has never seen a shactor helper before. No prior left heart catheterization per patient. He had treadmill only stress test with [facility] 06/01/15: negative. No known history of coronary artery disease. No history of previous myocardial infarction. No history of heart failure. No known history of valvular heart disease. New onset known arrhythmia, Afib and NSVT. He is active and runs 3-4 miles occasionally and will increase. Reports infrequent nonexertional shooting/tightness chest pain lasting for few seconds. Intermittent, improved shortness of breath with activity, with palpitation episodes. Intermittent dyspnea on exertion improved. He is able to run 3-4 miles. Reports increased frequency and duration of palpitations for a few minutes up to an hour or a day in the last 4 months since 12/2019, better since last visit. No orthopnea. No PND's. No dizziness with palpitation episodes. No syncope or near syncope. No leg swelling. No nausea and vomiting. No major bleeding events. No side effects from medications. Had ECHO done in 08/18/20 showed borderline LV hypertrophy. There is normal global systolic function and contractility. The estimated left ventricle ejection fraction is 55-60% (normal). There is mild thickening of mitral valve anterior leaflet. There is trace mitral regurgitation. There is trace tricuspid regurgitation. Had ECHO on 05/10/18 showing normal left ventricular size. Mild concentric left ventricular hypertrophy. Normal global left ventricular systolic function. Normal left ventricular diastolic function. Ejection fraction is measured at 62%. Mild mitral regurgitation. Trace aortic regurgitation. Had Lexiscan cardiolite stress test 08/19/20: Adequate stress with lexiscan. Negative lexiscan stress test for ischemia. Normal LV systolic function. Compared to last study in March 2018, there are no changes. Had Lexiscan stress test 03/2018 with [facility]: negative for ischemia, with fixed anterior defect, likely artifact, LVEF 59%. Had 7 day Zoll box car bracer 06/14/20: Symptoms correlated with paroxysmal atrial flutter and atrial fibrillation with RVR and with NSVT (6 beats max.). He had an unremarkable 30 day event monitor on 05/15/18, showing baseline rhythm as NSR, sinus tachycardia, sinus bradycardia. Max HR 124 bpm, minimum 56 bpm. No PAC's or PVC's. No signs of atrial fibrillation or other arrhythmia. Reports snoring. No daytime somnolence. Results from this visit, or from the past: 08/04/20 BMP: NA 140, K 4.1, CL 102, CO2 32, GLU 118, BUN 9, CR 1.00, AST 25, ALT M.010 TSH: 3.94065 LIPID: TC 159, TR 167, HDL 29, LDL 104 01/08/20: Cr 1.03, K 3.7, 05/09/18: A 140 , K 4.2 ,CL 100 ,CO2 30 ,GLU 95 ,BUN 15 ,CR 1.10, TC 170 ,TG 117 ,HDL 39 ,LDL 106, HB16.1, HT 48.2 05/09/18: TSH 2.3 05/09/18: TC 170, TG 117, HDL 39, LDL 106 05/09/2018: WBC 6.4, HGB 16.1, HCT 45.2, PLT 252 08/05/20 EKG: NSR, Incomplete RBBB06/03/20 EKG: Sinus bradycardia. RSR (V1)- nondiagnostic. Left atrial enlargement.EKG 11/29/19 Normal sinus rhythm WNL111/05/17 EKG: Incomplete rbbb. EKG 02/13/19 : Incomplete rbbb EKG 09/05/18 ; Incomplete rbbb EKG 05/14/18 : Sinus bradycardia Incomplete rbbb EKG 05/11/18: Sinus rhythm. Incomplete bundle branch block. Borderline ECG. Had 7 day Zoll box car bracer 06/14/20: Symptoms correlated with paroxysmal atrial flutter and atrial fibrillation with RVR and with NSVT (6 beats max.). Event Monitor 05/15/18 : Unremarkable event monitor. Symptoms did not correlate to any arrhythmia. 08/18/20 ECHO: LV chamber size is normal. There is borderline LV hypertrophy. There is normal global systolic function and contractility. The estimated left ventricle ejection fraction is 55-60% (normal). There is mild thickening of mitral valve anterior leaflet. There is trace mitral regurgitation. There is trace tricuspid regurgitation. Had Lexiscan cardiolite stress test 08/19/20: Adequate stress with lexiscan. Negative lexiscan stress test for ischemia. Normal LV systolic function. Compared to last study in March 2018, there are no changes. 09/05/18 EKG: Incomplete rbbb. ECHO 05/10/18: Normal left ventricular size. Mild concentric left ventricular hypertrophy. Normal global left ventricular systolic function. Normal left ventricular diastolic function. Ejection fraction is measured at 62%. XR 05/09/18 CHEST 2 VIEW: No acute cardiopulmonary findings. Nadir hodges, [place] - [facility] 08/26/2020 13:44:10
--- OUTSIDE RECORDS SUMMARY | 2025-03-26 17:30 | XMS_ITS | Encounter Summary ---
Author Organization [facility] Address [address] [place] [address] Care Team Providers Care Single Resource Boss Name Role Phone Yanira Chen MD Primary Care Provider [phone] Encounter Details Date Type Department Care Team (Latest Contact Info) Description 04/15/2002 Outpatient Historical [facility] Yanira Farrell MD CHRONIC SINUSITIS NOS (Primary Dx) Social History Tobacco Use Types Packs/Day Years Used Date Smoking Tobacco: Never Assessed Sex and Gender Information Value Date Recorded Sex Assigned at Not on file Legal Sex Male 4:01 AM GAME ENGINEER Gender Identity Not on file Sexual Orientation Not on file documented as of this encounter Plan of Treatment Not on file documented as of this encounter Visit Diagnoses Diagnosis Unspecified sinusitis (chronic)- Primary documented in this encounter Care Teams Single Resource Boss Relationship Specialty Start Date End Date Yanira Chen MD PCP - General 03/11/08 documented as of this encounter
--- OUTSIDE RECORDS SUMMARY | 2025-03-26 17:30 | XMS_ITS | Encounter Summary ---
Author Organization [facility] Address [address] [place] [address] Care Team Providers Care Welding Process Engineer Name Role Phone Yanira Chen MD Primary Care Provider [phone] Encounter Details Date Type Department Care Team (Late st Contact Info) Description 09/03/2001 Outpatient Historical [facility] Family Medicine - [facility] [address] [facility] [address] [place] [id number] Yanira Chen MD [address] [place] [address] Social History Tobacco Use Types Packs/Day Years Used Date Smoking Tobacco: Never Assessed Sex and Gender Information Value Date Recorded Sex Assigned at Not on file Legal Sex Male 4:01 AM TENANT COORDINATOR Gender Identity Not on file Sexual Orientation Not on file documented as of this encounter Plan of Treatment Not on file documented as of this encounter Visit Diagnoses Not on filedocumented in this encounter Care Teams Welding Process Engineer Relationship Specialty Start Date End Date Yanira Chen MD PCP - General 03/11/08 documented as of this encounter
--- OUTSIDE RECORDS SUMMARY | 2025-03-26 17:30 | XMS_ITS | Clinical Summary ---
Author Organization [facility] Address [address] [place] [address] Care Team Providers Care Social Worker Aide Name Role Phone Ke Burks DO Primary Care Provider [phone] Allergies No known active allergies Medications sildenafiL, [...] daily Active ascorbic acid (ascorbic acid with adnois hips) 500 mg tablet,chewable Acti ve metoprolol XL (TOPROL-XL) 25 mg extended release tablet TAKE 1 TABLET BY MOUTH EVERY DAY 90 tablet 2 4 Active Active Problems Problem Noted Date Diagnosed Date Preventative health care 11/20/2023 Assessment & Plan (11/20/2023 8:42 AM WING COMMANDER): Lipid profile with next lab draw. Osteoarthritis 11/04/2020 Assessment & Plan (11/04/2020 6:04 PM WING COMMANDER): - hold nsaids periprocedurally Atrial fibrillation 10/05/2020 Overview (10/05/2020): Added automatically from request for surgery [id number] Assessment & Plan (11/20/2023 8:41 AM WING COMMANDER): Ok to change metoprolol to PRN. Assessment & Plan (11/05/2020 10:42 AM WING COMMANDER): Recurrent paroxysmal Afib/flutter treated with Pulmonary vein isolation/RFA yesterday. No complications noted overnight. - resume eliquis per EP team - resume toprol this morning - monitor on tele- NSR - PPI x 30 days per EP Assessment & Plan (11/04/2020 6:04 PM WING COMMANDER): - recurrent paroxysmal Afib/flutter treated with Pulmonary [...] to esophagus Chronic infection of sinus 11/26/2012 Surgical History Surgery Date Site/Laterality Comments SINUS SURGERY 10/16/2013 - 10/15/2014 [facility] Medical History Medical History Date Comments Hx Other Medical foot wrist 03/04 01 Hx Other Medical Nose 06/2000 Hx Other Medical plantar fasciat is/heels spurs 15 years ago; Comments: JNS 08/29/2016 - A-fib (HCC) SVT (supraventricular tachycardia) Hypertension Shingles Family History Medical History Relation Name Comments Heart attack Maternal Grandmother Anesthesia problems Neg Hx Stroke Neg Hx Relation Name Status Comments Maternal Grandmother Social History Tobacco Use Types Packs/Day Years Used Date Smoking Tobacco: Never Smokeless Tobacco: Never Tobacco Cessation:Counseling Given: Not Answered Alcohol Use Standard Drinks/Week Comments Not Currently 0 (1 standard drink = 0.6 oz pur e alcohol) Sex and Gender Information Value Date Recorded Sex Assigned at Not on file Legal Sex Male 10:02 AM WING COMMANDER Gender Identity Male 12/09/2020 6:29 PM WING COMMANDER Sexual Orientation Straight 12/09/2020 6: 29 PM WING COMMANDER Obstetrics History Last Filed Vital Signs Vital Sign Reading Time Taken Comments Blood Pressure 122/77 11/20/2023 8:40 AM WING COMMANDER Pulse 61 11/20/2023 8:40 AM WING COMMANDER Temperature 36.8 C (98.2 F) 02/07/2021 5:30 AM CDT Respiratory Rate 20 02/07/2021 7:45 AM CDT Oxygen Saturation 97% 11/20/2023 8:40 AM WING COMMANDER Inhaled Oxygen Concentration - - Weight 102.8 kg (226 lb 9.6 oz) 11/20/2023 8:40 AM WING COMMANDER Height 188 cm (6' 2) 11/20/2023 8:40 AM WING COMMANDER Body Mass Index 29.09 11/20/2023 8:40 AM WING COMMANDER Plan of Treatment Health Maintenance Due Date Last Done Comments Colon Cancer Screening-Colonoscopy 1975 Depression Screening 1975 Hepatitis C Screening 1975 DTaP/Tdap/Td Vaccine (1 - Tdap) 1986 Hepatitis B Screening 1993 Regular Well Visit/Exam 18-64 1993 Influenza Vaccine (Season Ended) 2025 Pneumococcal vaccine <65 Aged Out No longer eligible based on patient's age to complete this topic Medical Devices Implanted Type Area Hydrogen Power Plant Engineer Device Identifier Shelf Expiration Date Model / Serial / Lot [employer] [id number] System 6-12fr Mvp Venous Closure Vascade - [id number] Implanted:Qty: 1 on 11/04/2020 by Ronald Epperson MD at [facility] [employer] 08/17/2022 [id number] / / [employer] [id number] System 6-12fr Mvp Venous Closure Vascade - [id number] Implanted:Qty: 1 on 11/04/2020 by Ronald Eppreson MD at [facility] [employer] 08/17/2022 [id number]-[id number] / / [employer] [id number] System 6-12fr Mvp Venous Closure Vascade - [id number] Implanted:Qty: 1 on 11/04/2020 by Ronald Epperson MD at [facility] [employer] 08/17/2022 [id number] / / Insurance Mantis Deposition Mantis Deposition Advance Directives For more information, please contact: [phone] * Full Code (Latest Code Status on File) Date Activated Date Inactivated Comments 02/05/2021 3:10 PM 02/07/2021 3:58 PM Care Teams Social Worker Aide Relationship Specialty Start Date End Date Ke Burks DO [facility] - General 06/01/15
--- OUTSIDE RECORDS SUMMARY | 2025-03-26 17:30 | XMS_ITS | Encounter Summary ---
Author Organization [facility] Address [address] [place] [address] Care Team Providers Care Plumbing Manager Name Role Phone Yanira Chen MD Primary Care Provider [phone] Encounter Details Date Type Department Care Team (Late st Contact Info) Description 07/20/2004 Outpatient Historical [facility] Family Medicine - [facility] [address] [facility] [address] [place] [phone] Yanira Chen MD [address] [place] [address] Social History Tobacco Use Types Packs/Day Years Used Date Smoking Tobacco: Never Assessed Sex and Gender Information Value Date Recorded Sex Assigned at Not on file Legal Sex Male 4:01 AM ELECTRONIC INTEGRATED SYSTEMS MECHANIC Gender Identity Not on file Sexual Orientation Not on file documented as of this encounter Plan of Treatment Not on file documented as of this encounter Visit Diagnoses Not on filedocumented in this encounter Care Teams Plumbing Manager Relationship Specialty Start Date End Date Yanira Chen MD PCP - General 03/11/08 documented as of this encounter
--- OUTSIDE RECORDS SUMMARY | 2025-03-26 17:30 | XMS_ITS | Encounter Summary ---
Author Organization [facility] Address [address] [place] [address] Care Team Providers Care Glass Calibrator Name Role Phone Yanira Chen MD Primary Care Provider [phone] Encounter Details Date Type Department Care Team (Latest Contact Info) Description 05/09/2003 Outpatient Historical [facility] Abimael Mckenzie MD OPEN WOUND OF FINGER (Primary Dx) Social History Tobacco Use Types Packs/Day Years Used Date Smoking Tobacco: Never Assessed Sex and Gender Information Value Date Recorded Sex Assigned at Not on file Legal Sex Male 4:01 AM SUPERVISOR WEAVING Gender Identity Not on file Sexual Orientation Not on file documented as of this encounter Plan of Treatment Not on file documented as of this encounter Visit Diagnoses Diagnosis Open wound of finger(s) , without mention of complication- Primary documented in this encounter Care Teams Glass Calibrator Relationship Specialty Start Date End Date Yanira Chen MD PCP - General 03/11/08 documented as of this encounter
--- OUTSIDE RECORDS SUMMARY | 2025-03-26 17:30 | XMS_ITS | Encounter Summary ---
Author Organization [facility] Address [address] [place] [address] Care Team Providers Care Home Health Lvn Name Role Phone Yanira Chen MD Primary Care Provider Encounter Details Date Type Department Care Team (Late st Contact Info) Description 06/13/2001 Outpatient Historical [facility] Family Medicine - [facility] [address] [facility] [address] [place] [phone] Yanira Chen MD [address] [place] [address] Social History Tobacco Use Types Packs/Day Years Used Date Smoking Tobacco: Never Assessed Sex and Gender Information Value Date Recorded Sex Assigned at Not on file Legal Sex Male 4:01 AM MEDICAL LAB TECH INSTRUCTOR Gender Identity Not on file Sexual Orientation Not on file documented as of this encounter Plan of Treatment Not on file documented as of this encounter Visit Diagnoses Not on filedocumented in this encounter Care Teams Home Health Lvn Relationship Specialty Start Date End Date Yanira Chen MD PCP - General 03/11/08 documented as of this encounter
--- OUTSIDE RECORDS SUMMARY | 2025-03-26 17:30 | XMS_ITS | Encounter Summary ---
Author Organization [facility] Address [address] [place] [address] Care Team Providers Care Service Delivery Analyst Name Role Phone Yanira Chen MD Primary Care Provider [phone] Encounter Details Date Type Department Care Team (Latest Contact Info) Description 05/13/2003 Outpatient Historical [facility] Abimael Mckenzie MD ATTEN-SURG DRESSNG/SUTUR (Primary Dx) Social History Tobacco Use Types Packs/Day Years Used Date Smoking Tobacco: Never Assessed Sex and Gender Information Value Date Recorded Sex Assigned at Not on file Legal Sex Male 4:01 AM VENEREAL DISEASE CONTROL HEAD Gender Identity Not on file Sexual Orientation Not on file documented as of this encounter Plan of Treatment Not on file documented as of this encounter Visit Diagnoses Diagnosis Attention to dressings and sutures- Primary documented in this encounter Care Teams Service Delivery Analyst Relationship Specialty Start Date End Date Yanira Chen MD PCP - General 03/11/08 documented as of this encounter
--- OUTSIDE RECORDS SUMMARY | 2025-03-26 17:30 | XMS_ITS | Encounter Summary ---
Author Organization [facility] Address [address] [place] [address] Care Team Providers Care Grease Refiner Operator Name Role Phone Yanira Chen MD Primary Care Provider [phone] Encounter Details Date Type Department Care Team (Late st Contact Info) Description 04/10/2002 Outpatient Historical [facility] Family Medicine - [facility] [address] [facility] [address] [place] [id number] Yanira Chen MD [address] [place] [address] Social History Tobacco Use Types Packs/Day Years Used Date Smoking Tobacco: Never Assessed Sex and Gender Information Value Date Recorded Sex Assigned at Not on file Legal Sex Male 4:01 AM ENDO TECH Gender Identity Not on file Sexual Orientation Not on file documented as of this encounter Plan of Treatment Not on file documented as of this encounter Visit Diagnoses Not on filedocumented in this encounter Care Teams Grease Refiner Operator Relationship Specialty Start Date End Date Yanira Chen MD PCP - General 03/11/08 documented as of this encounter
--- OUTSIDE RECORDS SUMMARY | 2025-03-26 17:30 | XMS_ITS | Clinical Summary ---
Author Organization [facility] Address [address] Riggsn: [place] [id number] Care Team Providers Care Team Assembler Name Role Phone Yanira Chen MD Primary Care Provider [phone] Social History Tobacco Use Types Packs/Day Years Used Date Smoking Tobacco: Never Assessed Sex and Gender Information Value Date Recorded Sex Assigned at Not on file Legal Sex Male 4:01 AM PARKING LOT SIGNALER Gender Identity Not on file Sexual Orientation Not on file Plan of Treatment Health Maintenance Due Date Last Done Comments DTAP/TDAP/TD VACCINES (1 - Tdap) 1994 HEPATITIS B VACCINES (1 of 3 - 19+ 3-dose series) 09/15 COLORECTAL SCREENING 2020 Colorectal Cancer Screening 2020 FIT-DNA Q 3 years 2020 FIT/FOBT Q 1 year 2020 Flex Sig/CT Colonography Q 5 years 2020 INFLUENZA VACCINE (#1) 2024 Care Teams Team Assembler Relationship Specialty Start Date End Date Yanira hCen MD PCP - General 03/11/08
--- OUTSIDE RECORDS SUMMARY | 2025-03-26 17:30 | XMS_ITS | Encounter Summary ---
Author Organization [facility] Address [address] [place] [address] Care Team Providers Care Feather Separator Name Role Phone Yanira Chen MD Primary Care Provider [phone] Encounter Details Date Type Department Care Team (Late st Contact Info) Description 03/25/2003 Outpatient Historical [facility] Family Medicine - [facility] [address] [facility] [address] [place] [phone] Yanira Chen MD [address] [place] [address] Social History Tobacco Use Types Packs/Day Years Used Date Smoking Tobacco: Never Assessed Sex and Gender Information Value Date Recorded Sex Assigned at Not on file 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
--- OUTSIDE RECORDS SUMMARY | 2025-03-26 17:30 | XMS_ITS | Encounter Summary ---
Author Organization [facility] Address [address] [place] [address] Care Team Providers Care Director Clinical Research Name Role Phone Yanira Chen MD Primary Care Provider [phone] Encounter Details Date Type Department Care Team (Late st Contact Info) Description 02/17/2000 Outpatient Historical [facility] Medicine - [facility] [address] [facility] [address] [place] [phone] Ronald Branham MD [address] [facility] [address] [place] [address] Social History Tobacco Use Types Packs/Day Years Used Date Smoking Tobacco: Never Assessed Sex and Gender Information Value Date Recorded Sex Assigned at Not on file 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
--- OUTSIDE RECORDS SUMMARY | 2025-03-26 17:30 | XMS_ITS | Encounter Summary ---
Author Organization [facility] Address [address] [place] [address] Care Team Providers Care Cardiovascular Radiologic Technologist Name Role Phone Yanira Chen MD Primary Care Provider [phone] Encounter Details Date Type Department Care Team (Late st Contact Info) Description 09/03/2003 Outpatient Historical [facility] Family Medicine - [facility] [address] [facility] [address] [place] [phone] Yanira Chen MD [address] [place] [address] Social History Tobacco Use Types Packs/Day Years Used Date Smoking Tobacco: Never Assessed Sex and Gender Information Value Date Recorded Sex Assigned at Not on file 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
--- OUTSIDE RECORDS SUMMARY | 2025-03-26 17:30 | XMS_ITS | Encounter Summary ---
Author Organization [facility] Address [address] [place] [address] Care Team Providers Care Betting Clerk Name Role Phone Yanira Chen MD Primary Care Provider [phone] Encounter Details Date Type Department Care Team (Late st Contact Info) Description 06/19/2002 Outpatient Historical [facility] Family Medicine - [facility] [address] [facility] [address] [place] [phone] Yanira Chen MD [address] [place] [address] Social History Tobacco Use Types Packs/Day Years Used Date Smoking Tobacco: Never Assessed Sex and Gender Information Value Date Recorded Sex Assigned at Not on file 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
[2025-03-30 11:44] LABS: Testosterone Free 227.8 pg/mL (35.0-155.0); Testosterone Total 1039 ng/dL (250-1100)
== END 2025-03-26 14:58 | disposition home or self-care (01) ==
LOC: ANHLAB 15:00
PROVIDERS: PCP Internal Medicine; Visit Provider Internal Medicine
DX: E29.1 Testicular hypofunction (principal); Z12.5 Encounter for screening for malignant neoplasm of prostate; Z51.81 Encounter for therapeutic drug level monitoring; Z79.890 Hormone replacement therapy; Z13.220 Encounter for screening for lipoid disorders
CPT/HCPCS: 36415; 80061; 83540; 83550; 84153; 84402; 84403; G0103

== ENCOUNTER 2025-06-24 10:54 | Outpatient (CLI) | payer OTHER, SELFPAY ==
--- NOTE | ~2025-06-24 | US_ITS ---
EXAMINATION: US scrotum doppler DATE: 06/24/2025 11:30 INDICATION: Right testicular and groin pain with palpable lump at the right testis TECHNIQUE: Testicular sonogram utilizing grayscale and Doppler COMPARISON: None. FINDINGS: The right testis measures 2.7 x 2.2 x 2.3 cm. The left testis measures 3.5 x 1.8 x 2.6 cm. Symmetric normal grayscale appearance to both testes. There is normal vascular flow to both testes. The left epididymis is normal with normal vascular flow. There is focal swelling with heterogeneous echogenicity and increased vascular flow flow on color Doppler at the tail of the right epididymis without a discrete mass which is suspicious for epididymitis. Again seen are relatively symmetric moderate sized bilateral hydroceles. No evident hernia is evident at the left or right inguinal regions. IMPRESSION: 1. Region of focal swelling, heterogeneous echogenicity and increased vascular flow on color Doppler at the tail of the right epididymis suspicious for epididymitis. 2. Normal bilateral testes and left epididymis. 3. Moderate-sized bilateral hydroceles. Reviewed, dictated and finalized at location A. IMPRESSION: 1. Region of focal swelling, heterogeneous echogenicity and increased vascular flow on color Doppler at the tail of the right epididymis suspicious for epidi dymitis. 2. Normal bilateral testes and left epididymis. 3. Moderate-sized bilateral hydroceles.
== END 2025-06-24 10:55 | disposition home or self-care (01) ==
LOC: MICIMG 10:55
PROVIDERS: PCP Internal Medicine; Visit Provider Nurse Practitioner
DX: N50.819 Testicular pain, unspecified (principal)
CPT/HCPCS: 76870; 93976

== ENCOUNTER 2025-09-18 16:57 | Outpatient (CLI) | payer OTHER, SELFPAY ==
[2025-09-18 17:29] LABS: Hematocrit 44.1 % (42.0-52.0); Hemoglobin 15.0 g/dL (14.0-18.0); Immature Granulocyte Percent A 0.3 % (0-0.5); Lymphocytes Absolute Auto 1.45 K/mm3 (0.9-3.2); Mean Corpuscular HGB Conc 34.0 g/dl (32-36); Mean Corpuscular Hemoglobin 30.4 pg (26-34); Mean Corpuscular Volume 89.5 fl (80-100); Nucleated Red Blood Cells Absolute Auto 0.000 K/mm3 (0.0-0.012); Nucleated Red Blood Cells Perc 0.0 % (0.0-0.2); Platelet Count Result 223 k/mm3 (150-375); Red Blood Count 4.93 M/mm3 (4.6-6.20); White Blood Count 7.6 K/mm3 (4.5-10.0)
[2025-09-18 17:34] LABS: Alanine Aminotransferase 49 U/L (6-50); Albumin Level 4.5 g/dL (3.5-5.1); Alkaline Phosphatase 77 U/L (38-126); Anion Gap 5 mmol/L (4-12); Aspartate Amino Transferase 40 U/L (17-59); Bilirubin,Total 0.7 mg/dL (0.2-1.3); Blood Urea Nitrogen 15 mg/dL (9-20); Calcium 9.1 mg/dL (8.4-10.2); Carbon Dioxide 29 mmol/L (22-30); Chloride 101 mmol/L (98-107); Cholesterol 188 mg/dL (0-200); Estimated Glomerular Filt Rate > 60; Glucose 91 mg/dL (65-110); HDL Direct 40 mg/dL; Potassium 3.9 mmol/L (3.4-5.0); Sodium 135 mmol/L (137-145); Total Protein 7.5 g/dL (6.3-8.2); Triglycerides 158 mg/dL (<150)
[2025-09-20 21:07] LABS: Free Testosterone (Direct) 35.9 pg/mL (6.8-21.5)
== END 2025-09-18 16:58 | disposition home or self-care (01) ==
PROVIDERS: PCP Internal Medicine; Visit Provider Nurse Practitioner
DX: R79.89 Other specified abnormal findings of blood chemistry (principal); Z13.220 Encounter for screening for lipoid disorders; Z13.29 Encounter for screening for other suspected endocrine disorder
CPT/HCPCS: 36415; 80053; 80061; 84402; 84403; 85025